=== PATIENT | male | born 1960 | race Caucasian/White ===

== ENCOUNTER → 2016-08-30 | Outpatient (CLI) | payer MEDICAID ==
[2016-03-08 14:22] VITALS: BP 130/65
[2016-08-30 13:36] LABS: BASOPHILS # (AUTO) 0.1 X10^3/uL (0.0-0.1); BASOPHILS % (AUTO) 0.7 % (0.2-1.0); EOSINOPHILS # (AUTO) 0.1 x10^3/uL (0.0-0.2); EOSINOPHILS % (AUTO) 1.5 % (0.9-2.9); HEMATOCRIT 35.5 % (42.0-54.0); HEMOGLOBIN 12.4 g/dL (13.5-18.0); LYMPHOCYTES # (AUTO) 1.3 X10^3/uL (1.3-2.9); MEAN CORPUSCULAR HEMOGLOBIN 27.8 pg (27.0-34.0); MEAN CORPUSCULAR HGB CONC 34.9 g/dL (33.0-35.0); MEAN CORPUSCULAR VOLUME 79.7 fL (80.0-100.0); MEAN PLATELET VOLUME 8.3 fL (7.4-11.0); MONOCYTES # (AUTO) 0.3 x10^3/uL (0.3-0.8); MONOCYTES % (AUTO) 4.6 % (0.0-13.0); NEUTROPHILS # (AUTO) 5.7 x10^3/uL (2.2-4.8); NEUTROPHILS % (AUTO) 76.2 % (42.0-75.0); PLATELET COUNT 150 X10^3/uL (150.0-450.0); RED BLOOD COUNT 4.45 X10^6/uL (4.7-6.0); RED CELL DISTRIBUTION WIDTH 13.8 % (11.6-16.5); WHITE BLOOD COUNT 7.5 X10^3/uL (3.6-10.0)
[2016-08-30 13:41] LABS: HEMOGLOBIN A1C 9.8 % (4.5-6.2)
[2016-08-30 13:42] LABS: ALBUMIN 2.8 g/dL (3.4-5.0); C-REACTIVE PROTEIN 23.1 mg/L (0-3.0); CHOL/HDL RATIO 7.3 (0.0-5.0); CREATININE 2.15 mg/dL (0.70-1.30); MAGNESIUM 1.3 mg/dL (1.7-2.9); TOTAL PROTEIN 6.7 g/dL (6.4-8.2); URIC ACID 8.9 mg/dL (3.5-7.2)
[2016-08-30 14:31] LABS: ERYTHROCYTE SEDIMENTATION RATE 36 MM/HOUR (0-15)
== END ==
LOC: LAB 12:58
PROVIDERS: ATTEND Nurse Practitioner Family
DX: Z76.0 Encounter for issue of repeat prescription (principal); E61.2 Magnesium deficiency; E79.0 Hyperuricemia without signs of inflammatory arthritis and tophaceous disease
CPT/HCPCS: 36415; 80053; 80061; 83036; 83735; 84550; 85025; 85652; 86140

== ENCOUNTER → 2016-09-17 | Outpatient (CLI) | payer MEDICAID ==
[2016-03-08 14:22] VITALS: BP 130/65
--- NOTE | 2016-09-17 15:50 | MRI ---
MRI lumbar spine without contrast Indication: Lower back pain Technique: Multisequence, multiplanar MR images of the lumbar spine were obtained without IV contras t. Comparison: 07/29/15 Findings: bone marrow signal and vertebral body height/alignment are normal. No acute fracture, subl uxation or suspicious osseous lesion is identified. The conus is normal in signal and caliber, termi nating at T12-L1. The cauda equina is unremarkable. A few small left renal cysts are present. The im aged paraspinal soft tissues otherwise demonstrate no gross unexpected findings. T12-L1, L1-L2: Prominent anterior osteophytes. Otherwise, unremarkable. L2-L3: Mild right facet arthropathy. Otherwise, unremarkable. L3-L4: Mild bilateral facet arthropathy. Otherwise, unremarkable. L4-L5: Prominent anterior osteophytes and mild broad-based disk bulge and facet arthropathy. Otherwi se, unremarkable. L5-S1: Moderate, broad-based disc bulge and bilateral facet arthropathy result in stable severe narr owing of the left and right lateral recesses. There is also mild canal and mild left greater than ri ght foraminal stenosis, also unchanged in the interval. Impression: Overall stable degenerative changes of the lumbar spine, greatest at L5-S1 as detailed above. Reported By:
== END ==
LOC: RAD 14:09
PROVIDERS: ATTEND Nurse Practitioner Family
DX: M54.5 Low back pain (principal)
CPT/HCPCS: 72148

== ENCOUNTER → 2016-10-10 | Outpatient (CLI) | payer MEDICAID ==
[2016-03-08 14:22] VITALS: BP 130/65
== END ==
LOC: RT 09:55
PROVIDERS: ATTEND Nurse Practitioner Family
DX: R20.8 Other disturbances of skin sensation (principal)
CPT/HCPCS: 95909

== ENCOUNTER → 2016-11-22 | Outpatient (CLI) | payer MEDICAID ==
[2016-03-08 14:22] VITALS: BP 130/65
[2016-11-22 14:42] LABS: BASOPHILS # (AUTO) 0.1 X10^3/uL (0.0-0.1); BASOPHILS % (AUTO) 0.9 % (0.2-1.0); EOSINOPHILS # (AUTO) 0.1 x10^3/uL (0.0-0.2); EOSINOPHILS % (AUTO) 2.1 % (0.9-2.9); HEMATOCRIT 26.2 % (42.0-54.0); HEMOGLOBIN 9.2 g/dL (13.5-18.0); LYMPHOCYTES # (AUTO) 1.2 X10^3/uL (1.3-2.9); LYMPHOCYTES % (AUTO) 20.5 % (21.0-51.0); MEAN CORPUSCULAR HGB CONC 34.9 g/dL (33.0-35.0); MEAN CORPUSCULAR VOLUME 80.1 fL (80.0-100.0); MEAN PLATELET VOLUME 7.6 fL (7.4-11.0); MONOCYTES # (AUTO) 0.3 x10^3/uL (0.3-0.8); MONOCYTES % (AUTO) 4.9 % (0.0-13.0); NEUTROPHILS # (AUTO) 4.1 x10^3/uL (2.2-4.8); NEUTROPHILS % (AUTO) 71.6 % (42.0-75.0); PLATELET COUNT 167 X10^3/uL (150.0-450.0); RED BLOOD COUNT 3.27 X10^6/uL (4.7-6.0); RED CELL DISTRIBUTION WIDTH 14.5 % (11.6-16.5); WHITE BLOOD COUNT 5.8 X10^3/uL (3.6-10.0)
[2016-11-22 14:55] LABS: ALBUMIN 2.6 g/dL (3.4-5.0); CALCIUM 8.7 mg/dL (8.5-10.1); CARBON DIOXIDE 29.2 mmol/L (21-32); COR CA(FOR HYPOALB) 9.8 mg/dL (8.5-10.1); CREATININE 2.25 mg/dL (0.70-1.30); MAGNESIUM 1.8 mg/dL (1.7-2.9); TOTAL PROTEIN 6.4 g/dL (6.4-8.2)
[2016-11-22 15:07] LABS: BAND NEUTROPHILS % 2 % (0-10)
[2016-11-22 15:09] LABS: HYPOCHROMASIA SLIGHT; PLATELET MORPHOLOGY COMMENT NORMAL (NORMAL)
[2016-11-22 15:11] LABS: ANISOCYTOSIS SLIGHT
[2016-11-22 17:40] LABS: RETICULOCYTE % 4.35 % (0.8-2.2)
--- NOTE | 2016-11-25 15:38 | RAD ---
HISTORY: Nontraumatic pain Study: 3 views of the left foot. Comparison: None Findings: No acute fracture or dislocation. Joint spaces are well aligned. Soft tissue swelling particularly o f the dorsal foot. IMPRESSION: 1. Soft tissue swelling of the dorsal foot without definite underlying bony injury. Reported By:
== END ==
LOC: LAB 14:21
PROVIDERS: ATTEND Nurse Practitioner Family
DX: D64.89 Other specified anemias (principal); E61.2 Magnesium deficiency; M79.672 Pain in left foot; R60.0 Localized edema
CPT/HCPCS: 36415; 73630; 80053; 83540; 83735; 85025; 85045

== ENCOUNTER → 2016-11-27 | Outpatient (CLI) | payer MEDICAID ==
[2016-03-08 14:22] VITALS: BP 130/65
[2016-11-27 14:26] LABS: HEMATOCRIT 28.8 % (42.0-54.0); HEMOGLOBIN 9.8 g/dL (13.5-18.0)
== END ==
LOC: LAB 11:17
PROVIDERS: ATTEND Nurse Practitioner Family
DX: D64.89 Other specified anemias (principal)
CPT/HCPCS: 36415; 83550; 85014; 85018

== ENCOUNTER → 2016-12-04 | Outpatient (CLI) | payer MEDICAID ==
[2016-03-08 14:22] VITALS: BP 130/65
[2016-12-04 12:46] LABS: HEMATOCRIT 33.4 % (42.0-54.0); HEMOGLOBIN 11.2 g/dL (13.5-18.0)
--- NOTE | 2016-12-04 16:45 | RAD ---
HISTORY: Hypertension, CHF, shortness of breath, congestion Study: 01/23/2016 Comparison:Two views the chest Findings: The trachea is midline. The cardiac silhouette is enlarged with prominence of the central pulmonary vasculature and increased interstitial markings. Small bilateral pleural effusions are noted right gr eater than left. Bibasilar atelectasis and/or infiltrate cannot be excluded. IMPRESSION: Cardiomegaly with mild prominence of the central pulmonary vasculature. Interstitial changes with bilateral pleural effusions. Bibasilar atelectasis and/or infiltrate cannot be excluded. Reported By:
== END | disposition home or self-care (01) ==
LOC: LAB 12:17
PROVIDERS: ATTEND Nurse Practitioner Family
DX: R06.02 Shortness of breath (principal); J90 Pleural effusion, not elsewhere classified; J98.11 Atelectasis; D64.89 Other specified anemias; I51.7 Cardiomegaly
CPT/HCPCS: 36415; 71020; 85014; 85018

== ENCOUNTER → 2016-12-10 | Outpatient (CLI) | payer MEDICAID ==
[2016-03-08 14:22] VITALS: BP 130/65
--- NOTE | 2016-12-10 15:01 | MRI ---
Indication: Pain Exam: MRI left foot without contrast Technique: Routine multiplanar multisequence imaging was performed through the left foot without cont rast Findings: The ankle mortise is intact. The talus and calcaneus are intact and normal signal intensity . The tarsal bones are intact and in good position. The metatarsals and digits appear intact. No frac ture or dislocation is seen. The bone marrow signal is normal throughout . There is no periosteal artie ction. The joint spaces are intact. There is extensive soft tissue swelling around the ankle which is more prominent medially and extends along the dorsum of the foot and into the digits . There is mild edema and stranding in the deep soft tissues and musculature around the midfoot with no focal fluid collection or mass seen. The surrounding tendons and ligaments are intact. Impression: Extensive edema and/or cellulitis around the ankle and extending along the dorsum and into the digits distally . This extends into the surrounding musculature along the midfoot with no focal fluid colle ction or abscess seen. No acute bony abnormality identified. Reported By:
== END ==
LOC: RAD 11:15
PROVIDERS: ATTEND Nurse Practitioner Family
DX: M79.672 Pain in left foot (principal); R60.0 Localized edema
CPT/HCPCS: 73721

== ENCOUNTER 2017-01-01 17:56 | Inpatient (IN) | payer MEDICAID ==
[2017-01-01 18:21] VITALS: BMI 34.7
--- NOTE | 2017-01-01 18:59 | DR.GENAD ---
HPI - PCP Primary Care Physician: Reyes - Complaint/Symptoms Chief Complaint Doctors Comments: Patient states that he has chest pain but was seen in [place] last month and was told there is nothing he could do for him. He has thirteen stents. He states that he has a history of GI bleed has been seen by Dr Irene. Chief Complaint:: "I feel like my hemoglobin is low. I haven't had any tests done, but I know what it feels like. I can't even eat." - Source History Provided: Patient - Mode of Arrival Mode of Arrival: Wheelchair - Timing Onset of Chief Complaint: 12/30/16 PMH - PMH Past Medical History: Yes Past Medical History: Anemia, CHF, Diabetes, GERD, Hypertension Past Surgical History: No Surgical History: CABG/Valve Surgery - Family History History of Family Medical Conditions: Yes Family Medical History: Diabetes Mellitus, Cancer, Coronary Artery Disease - Social History Does patient currently use any type of tobacco product: No Have you used tobacco products in the last 12 months: No Type of Tobacco Use: None Does any household member use tobacco: No Alcohol Use: None Do you use any recreational Drugs:: No Lives With: Family Lives Where: Home - infectious screening In the last 2 months have you had wt loss of >10#?: NO Have you had fever, night sweats or hemotysis?: No Have you traveled outside the country in the last 6 months?: No Isolation: Standard ROS - Review of Systems Eyes: No Symptoms Reported ENTM: No Symptoms Reported Respiratoy: No Symptoms Reported Cardiovascular: No Symptoms Reported Gastrointestinal/Abdominal: No Symptoms Reported Genitourinary: No Symptoms Reported Neurological: No Symptoms Reported Musculoskeletal: No Symptoms Reported Integumentary: No Symptoms Reported Hematologic/Lymphatic: No Symptoms Reported Endocrine: No Symptoms Reported Psychiatric: No Symptoms Reported All Other Systems: Reviewed and Negative PE - Vital Signs Vitals: Temperature 97.5 F Pulse Rate 110 Respiratory Rate 18 Blood Pressure [Right Arm] 142/65 Blood Pressure [Left Arm] 154/71 Blood Pressure 149/71 O2 Sat by Pulse Oximetry 100 - General General Appearance: Alert, In No Apparent Distress - Head Head Exam: Normal Inspection, Atraumatic - Eyes Eye exam: Normal Appearance, PERRL, EOMI - ENT ENT Exam: Normal Exam External Ear Exam: Normal External Inspection TM/Canal Exam: Bilateral Normal Nose Exam: Normal Nose Exam Mouth Exam: Normal Inspection Throat Exam: Normal Inspection - Neck Neck Exam: Normal Inspection, Full ROM - Chest Chest Inspection: Normal Inspection - Respiratory Respiratory Exam: Normal Lung Sounds Bilat Respiratory Exam: Bilateral Clear to Auscultation - Cardiovascular Cardiovascular Exam: Regular Rate, Normal Rhythm - Abdominal Exam Abdominal Exam: Normal Inspection, Normal Bowel Sounds Abdominal Tenderness: negative: RUQ, RLQ, LUQ, LLQ, Epigastrium, Suprapubic, Diffuse, Mild, Moderate, Severe, Other - Extremities Extremities Exam: Normal Inspection - Back Back Exam: Normal Inspection, Full ROM - Neurologic Neurological Exam: Alert, Oriented X3, CN II-XII Intact - Psychiatric Psychiatric Exam: Normal Affect, Normal Mood - Skin Skin Exam: Warm, Dry, Intact Course - Consultation Called: 20:15 (Dr Velázquez agreed to admit for transfusion) ROR - Labs Reviewed Result Diagrams: 01/01/17 18:38 01/01/17 18:38 Laboratory: WBC 10.1 X10^3/uL (3.6-10.0) H 01/01/17 18:38 RBC 2.75 X10^6/uL (4.7-6.0) L 01/01/17 18:38 Hgb 7.4 g/dL (13.5-18.0) L 01/01/17 18:38 Hct 21.8 % (42.0-54.0) L 01/01/17 18:38 MCV 79.0 fL (80.0-100.0) L 01/01/17 18:38 MCH 27.0 pg (27.0-34.0) 01/01/17 18:38 MCHC 34.1 g/dL (33.0-35.0) 01/01/17 18:38 RDW 15.1 % (11.6-16.5) 01/01/17 18:38 Plt Count 138 X10^3/uL (150.0-450.0) L 01/01/17 18:38 Plt Count Comment Adequate (ADEQUATE) 01/01/17 18:38 MPV 8.3 fL (7.4-11.0) 01/01/17 18:38 Neut % 82.4 % (42.0-75.0) H 01/01/17 18:38 Lymph % 12.3 % (21.0-51.0) L 01/01/17 18:38 [place] % 4.2 % (0.0-13.0) 01/01/17 18:38 Eos % 0.8 % (0.9-2.9) L 01/01/17 18:38 Baso % 0.3 % (0.2-1.0) 01/01/17 18:38 Neut # 8.4 x10^3/uL (2.2-4.8) H 01/01/17 18:38 Lymph # 1.2 X10^3/uL (1.3-2.9) L 01/01/17 18:38 [place] # 0.4 x10^3/uL (0.3-0.8) 01/01/17 18:38 Eos # 0.1 x10^3/uL (0.0-0.2) 01/01/17 18:38 Baso # 0.0 X10^3/uL (0.0-0.1) 01/01/17 18:38 Absolute Nucleated RBC 0.1 /100WBC 01/01/17 18:38 Plt Morphology Comment Normal (NORMAL) 01/01/17 18:38 RBC Morphology Abnormal (NORMAL) 01/01/17 18:38 Poikilocytosis 1+ A 01/01/17 18:38 Sodium 139 mmol/L (136-145) 01/01/17 18:38 Corrected Sodium 140 mmol/L (136-145) 01/01/17 18:38 Potassium 3.3 mmol/L (3.5-5.1) L 01/01/17 18:38 Chloride 99 mmol/L (98-107) 01/01/17 18:38 Carbon Dioxide 29.1 mmol/L (21-32) 01/01/17 18:38 BUN 45 mg/dL (7-18) H 01/01/17 18:38 Creatinine 2.43 mg/dL (0.70-1.30) H 01/01/17 18:38 Est GFR (MDRD) Af Amer 36 (>60) L 01/01/17 18:38 Est GFR (MDRD) Non-Af 29 (>60) L 01/01/17 18:38 Glucose 154 mg/dL (65-99) H 01/01/17 18:38 Calcium 9.2 mg/dL (8.5-10.1) 01/01/17 18:38 - Diagnosis Discharge Problem: GI bleed Qualifiers: GI bleed type/associated pathology: anorectal hemorrhage Qualified Code(s): K62.5 - Hemorrhage of anus and rectum - Discharge Plan Condition: Stable - Follow ups/Referrals Follow ups/Referrals: NELDA HERMAN [Primary Care Provider] - 3 days - Instructions
[2017-01-01 19:16] LABS: CALCIUM 9.2 mg/dL (8.5-10.1); CARBON DIOXIDE 29.1 mmol/L (21-32); CREATININE 2.43 mg/dL (0.70-1.30)
[2017-01-01 19:19] LABS: BASOPHILS % (AUTO) 0.3 % (0.2-1.0); EOSINOPHILS # (AUTO) 0.1 x10^3/uL (0.0-0.2); EOSINOPHILS % (AUTO) 0.8 % (0.9-2.9); HEMATOCRIT 21.8 % (42.0-54.0); HEMOGLOBIN 7.4 g/dL (13.5-18.0); LYMPHOCYTES # (AUTO) 1.2 X10^3/uL (1.3-2.9); LYMPHOCYTES % (AUTO) 12.3 % (21.0-51.0); MEAN CORPUSCULAR HGB CONC 34.1 g/dL (33.0-35.0); MEAN PLATELET VOLUME 8.3 fL (7.4-11.0); MONOCYTES # (AUTO) 0.4 x10^3/uL (0.3-0.8); MONOCYTES % (AUTO) 4.2 % (0.0-13.0); NEUTROPHILS # (AUTO) 8.4 x10^3/uL (2.2-4.8); NEUTROPHILS % (AUTO) 82.4 % (42.0-75.0); PLATELET COUNT 138 X10^3/uL (150.0-450.0); RED BLOOD COUNT 2.75 X10^6/uL (4.7-6.0); RED CELL DISTRIBUTION WIDTH 15.1 % (11.6-16.5); WHITE BLOOD COUNT 10.1 X10^3/uL (3.6-10.0)
[2017-01-01 19:23] LABS: PLATELET MORPHOLOGY COMMENT NORMAL (NORMAL); POIKILOCYTOSIS 1+
[2017-01-01] MEDS ORDERED: K-LYTE EFFERVESCENT PO STA (20:58)
--- NOTE | 2017-01-01 21:02 | RAD ---
Chest AP portable Indication: A yet. Comparison: 12/04/2016 Findings: There is cardiomegaly without pneumothorax, effusion or consolidation. No overt edema seen. Impression: Cardiomegaly without new acute chest process. Reported By:
[2017-01-01] MEDS ORDERED: K-LYTE EFFERVESCENT ONE (21:03)
[2017-01-01 22:04] LABS: CKMB % 6.2 % (<4); CREATINE KINASE MB 3.9 ng/mL (0-4.0); TROPONIN I 0.25 ng/mL (0-1.5)
[2017-01-01] MEDS ORDERED: HumuLIN R SC PRN (22:25)
[2017-01-02] MEDS: NS 500 ML IV 500 ML IV ONE ×4 (00:01→10:52)
[2017-01-02 00:02] LABS: ALBUMIN 3.3 g/dL (3.4-5.0); COR CA(FOR HYPOALB) 9.8 mg/dL (8.5-10.1); TOTAL PROTEIN 6.9 g/dL (6.4-8.2)
[2017-01-02] MEDS ORDERED: LASIX IVP ONE (01:45)
[2017-01-02] MEDS: HumuLIN R SC PRN ×2 (06:11→21:10)
[2017-01-02 08:31] LABS: BASOPHILS # (AUTO) 0.1 X10^3/uL (0.0-0.1); BASOPHILS % (AUTO) 0.8 % (0.2-1.0); EOSINOPHILS % (AUTO) 0.5 % (0.9-2.9); HEMATOCRIT 27.2 % (42.0-54.0); HEMOGLOBIN 9.4 g/dL (13.5-18.0); LYMPHOCYTES # (AUTO) 1.3 X10^3/uL (1.3-2.9); LYMPHOCYTES % (AUTO) 15.2 % (21.0-51.0); MEAN CORPUSCULAR HEMOGLOBIN 27.6 pg (27.0-34.0); MEAN CORPUSCULAR HGB CONC 34.4 g/dL (33.0-35.0); MEAN CORPUSCULAR VOLUME 80.3 fL (80.0-100.0); MEAN PLATELET VOLUME 8.4 fL (7.4-11.0); MONOCYTES # (AUTO) 0.4 x10^3/uL (0.3-0.8); MONOCYTES % (AUTO) 4.8 % (0.0-13.0); NEUTROPHILS # (AUTO) 6.6 x10^3/uL (2.2-4.8); NEUTROPHILS % (AUTO) 78.7 % (42.0-75.0); PLATELET COUNT 131 X10^3/uL (150.0-450.0); RED BLOOD COUNT 3.39 X10^6/uL (4.7-6.0); RED CELL DISTRIBUTION WIDTH 16.1 % (11.6-16.5); WHITE BLOOD COUNT 8.4 X10^3/uL (3.6-10.0)
[2017-01-02 09:12] LABS: ALBUMIN 2.9 g/dL (3.4-5.0); CALCIUM 9.4 mg/dL (8.5-10.1); CARBON DIOXIDE 27.7 mmol/L (21-32); COR CA(FOR HYPOALB) 10.3 mg/dL (8.5-10.1); CREATININE 2.24 mg/dL (0.70-1.30); TOTAL PROTEIN 6.9 g/dL (6.4-8.2)
[2017-01-02] MEDS ORDERED: VOLTAREN 1 % GEL MULTI DOSE TUBE TOP PRN (09:15)
[2017-01-02] MEDS ORDERED: BENADRYL INJ 50 MG VIAL IVP PRN (09:16)
[2017-01-02] MEDS ORDERED: TYLENOL 325 MG TAB PO PRN (09:16)
[2017-01-02] MEDS ORDERED: RESTORIL CAP 30 MG PO PRN (09:20)
[2017-01-02] MEDS ORDERED: FERROUS SULFATE 325 MG PO SCH (09:30)
[2017-01-02] MEDS ORDERED: PATIENT'S HOME MEDICATION (Potassium Chloride [Klor-Con 10] 1 TAB) PO SCH (09:30)
[2017-01-02] MEDS ORDERED: PATIENT'S HOME MEDICATION (Folic Acid [Folic Acid] 1 TAB) PO SCH (09:30)
[2017-01-02] MEDS ORDERED: AMARYL TAB 4 MG ONE (09:32)
[2017-01-02] MEDS ORDERED: PEPCID 20 MG IV PREMIX* 20 MG/50 ML BAG IV ONE (09:34)
[2017-01-02] MEDS ORDERED: AMARYL TAB 4 MG PO SCH (10:00)
[2017-01-02] MEDS: ZANAFLEX PO PRN ×2 (10:06→21:01)
[2017-01-02] MEDS: PEPCID 20 MG IV PREMIX* 20 MG/50 ML BAG IV SCH ×2 (10:06→20:52)
[2017-01-02] MEDS: APRESOLINE TAB 25 MG PO SCH ×4 (10:06→22:10)
[2017-01-02] MEDS: ZAROXOYLN PO SCH ×2 (10:06→16:21)
[2017-01-02] MEDS: COREG TAB 6.25 MG PO SCH ×2 (10:06→20:50)
[2017-01-02] MEDS: MAG-OX TAB PO SCH ×2 (10:07→20:50)
[2017-01-02] MEDS: CYMBALTA PO SCH (10:07)
[2017-01-02] MEDS: ISOSORBIDE MONONITRATE ER PO SCH (10:07)
[2017-01-02] MEDS: PROTONIX INJ 40 MG VIAL IVP SCH ×2 (10:08→20:52)
[2017-01-02] MEDS: SOLIFENACIN SUCCINATE 5 MG PO SCH (10:09)
[2017-01-02] MEDS ORDERED: NS 500 ML IV 500 ML IV ONE (10:30)
[2017-01-02] MEDS ORDERED: DIPRIVAN VIAL 20 ML ONE (13:17)
[2017-01-02] MEDS: FOLIC ACID TAB 1 MG PO SCH (20:50)
[2017-01-02] MEDS: NEURONTIN CAP 400 MG PO SCH (20:51)
[2017-01-02] MEDS: ZOCOR TAB 40 MG PO SCH (20:51)
[2017-01-02] MEDS: MICRO K EXTEN CAP 10 MEQ PO SCH (20:51)
[2017-01-02] MEDS: TRICOR TAB 48 MG PO SCH (21:01)
[2017-01-02] MEDS: ANUCORT-HC SUPP PR SCH (21:02)
--- NOTE | 2017-01-02 22:03 | DR.H&P ---
H&P - History & Physical for Day of: H&P Date: 01/01/17 - Chief Complaint Chief Complaint: weakness, shortness of breath, chest pain - Allergies Allergies/Adverse Reactions: Allergies Allergy/AdvReac Type Severity Reaction Status Date / Time aspirin Allergy Verified 01/01/17 17:57 - History of Present Illness History of Present Illness: is a 56 year old patient of ours who presented to the emergency room with complaints of weakness and associated shortness of breath. He reports I feel like my hemoglobin is low. He reports a history of GI bleeds, for which he is under the care of Dr.Irfan arrieta. He was also noted with complaints of chest pain for the past month. 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 Patient rates pain 8/10 in his chest. He reports a medical history of: CAD , CHF, [place], hypertension, pneumonia, sleep apnea, GERD, GI bleed, renal disease, muscle weakness, arthritis, anemia, anxiety, depression, angioplasty/stents, CABG/valve surgery, cardiac stents x13 and cardiac bypass x7. On examination, heart rate is normal in rate and rhythm. Lung sounds are diminished. Abdomen is round, soft, and noted with mild, diffuse tenderness. Bilateral lower extremities are noted with 3+ pitting edema. Patient reports IV access to the left foot about a year ago. He reports pain and swelling to left foot since then. Left foot is noted with erythema and edema Patient is noted to be unable to lie flat due to difficulty breathing, with shortness of breath noted upon exertion. On arrival to the ER, vital signs were 97.5, 110, 18, 100%RA, 149/71. Labs and chest xray were obtained. Abnormal lab values include the following: WBC 10.1, RBC 2.75, Hgb 7.4, Hct 21.8, MCV 79.0, Plt Count 138, Neut% 82.4, Lymph% 12.3, Eos% 0.8, Neut# 8.4, Lymph# 1.2, Poikilocytosis 1+A, Potassium 3.3 , BUN 45, Creatinine 2.43, GFR(AA) 36, GFR(non) 29, Glucose . Stool Occult Blood : Positive. Chest xray reports: Cardiomegaly without new acute chest process. We admitted patient for further treatment and evaluation of GI bleed. We plan to administer two units of PRBC. We will follow up with AM labs and continue to monitor patient. - Past Medical History Past Medical History: Anemia, CHF, Diabetes, GERD, Hypertension Additional Medical History: Hx Chronic GI Bleeds, Hx Small Bowel AVM's, Chronic Constipation, Cardiac Arrhythmia, Muscle weakness - Past Surgical History Surgical History: Angioplasty/Stents, CABG/Valve Surgery Additional Surgical History: Small bowel AVM - Family History Family Medical History: Diabetes Mellitus, Cancer, [place], Coronary Artery Disease - Social History Does patient currently use any type of tobacco product: Yes Have you used tobacco products in the last 12 months: Yes Type of Tobacco Use: Cigarettes How many years tobacco product used: 41 Does any household member use tobacco: No Alcohol Use: None Drug Use: None - Medications Home Medications: Carvedilol [Coreg Tab 6.25 mg] 6.25 mg PO BID 01/01/17 [History Confirmed ] Famotidine [Pepcid Tab 20 mg] 40 mg PO BID 01/01/17 [History Confirmed 01/01/17] Furosemide [LASIX TAB 40 MG *] 40 mg PO BID 01/01/17 [History Confirmed 01/01/17 ] Gabapentin 400 mg PO HS 01/01/17 [History Confirmed 01/01/17] Glimepiride 4 mg PO BID 01/01/17 [History Confirmed 01/01/17] Hydralazine HCl 25 mg PO TID 01/01/17 [History Confirmed 01/01/17] Metolazone [Zaroxoyln] 2.5 mg PO DAILYWS 01/01/17 [History Confirmed 01/01/17] Metolazone [Zaroxoyln] 5 mg PO DAILY 01/01/17 [History Confirmed 01/01/17] Potassium Chloride [Klor-Con 10] 1 tab PO BID 01/01/17 [History Confirmed ] Solifenacin Succinate [Vesicare] 5 mg PO DAILY 01/01/17 [History Confirmed 01/01] Temazepam 30 mg PO HS PRN 01/01/17 [History Confirmed 01/01/17] - Physical Exam Vital Signs: Temperature 98.1 F Pulse Rate [Left] 86 Pulse Rate 110 Respiratory Rate 15 Blood Pressure [Right Arm] 145/69 Blood Pressure [Left Arm] 129/68 Blood Pressure 149/71 O2 Sat by Pulse Oximetry 99
[2017-01-03 06:05] LABS: BASOPHILS % (AUTO) 0.4 % (0.2-1.0); EOSINOPHILS # (AUTO) 0.1 x10^3/uL (0.0-0.2); EOSINOPHILS % (AUTO) 1.3 % (0.9-2.9); HEMATOCRIT 29.3 % (42.0-54.0); HEMOGLOBIN 10.1 g/dL (13.5-18.0); LYMPHOCYTES % (AUTO) 15.3 % (21.0-51.0); MEAN CORPUSCULAR HEMOGLOBIN 27.8 pg (27.0-34.0); MEAN CORPUSCULAR HGB CONC 34.6 g/dL (33.0-35.0); MEAN CORPUSCULAR VOLUME 80.4 fL (80.0-100.0); MEAN PLATELET VOLUME 8.4 fL (7.4-11.0); MONOCYTES # (AUTO) 0.4 x10^3/uL (0.3-0.8); MONOCYTES % (AUTO) 5.9 % (0.0-13.0); NEUTROPHILS # (AUTO) 5.1 x10^3/uL (2.2-4.8); NEUTROPHILS % (AUTO) 77.1 % (42.0-75.0); PLATELET COUNT 109 X10^3/uL (150.0-450.0); RED BLOOD COUNT 3.64 X10^6/uL (4.7-6.0); RED CELL DISTRIBUTION WIDTH 15.7 % (11.6-16.5); WHITE BLOOD COUNT 6.7 X10^3/uL (3.6-10.0)
[2017-01-03] MEDS: APRESOLINE TAB 25 MG PO SCH ×3 (06:13→22:10)
[2017-01-03 06:43] LABS: ALBUMIN 2.7 g/dL (3.4-5.0); CARBON DIOXIDE 27.4 mmol/L (21-32); CREATININE 2.13 mg/dL (0.70-1.30); TOTAL PROTEIN 6.3 g/dL (6.4-8.2)
[2017-01-03] MEDS: PEPCID 20 MG IV PREMIX* 20 MG/50 ML BAG IV SCH ×2 (08:41→20:33)
[2017-01-03] MEDS: PROTONIX INJ 40 MG VIAL IVP SCH ×2 (08:41→20:33)
[2017-01-03] MEDS: SOLIFENACIN SUCCINATE 5 MG PO SCH (08:42)
[2017-01-03] MEDS: CYMBALTA PO SCH (08:43)
[2017-01-03] MEDS: MICRO K EXTEN CAP 10 MEQ PO SCH ×2 (08:43→20:34)
[2017-01-03] MEDS: HEMOCYTE-PLUS PO SCH (08:43)
[2017-01-03] MEDS: COREG TAB 6.25 MG PO SCH ×2 (08:43→20:34)
[2017-01-03] MEDS: FOLIC ACID TAB 1 MG PO SCH ×2 (08:43→20:34)
[2017-01-03] MEDS: MAG-OX TAB PO SCH ×2 (08:43→20:34)
[2017-01-03] MEDS: ISOSORBIDE MONONITRATE ER PO SCH (08:43)
[2017-01-03] MEDS: ZAROXOYLN PO SCH ×2 (08:44→17:05)
[2017-01-03] MEDS: ANUCORT-HC SUPP PR SCH ×2 (09:01→20:35)
[2017-01-03] MEDS: HumuLIN R SC PRN ×3 (13:47→20:33)
[2017-01-03] MEDS: NEURONTIN CAP 400 MG PO SCH (20:34)
[2017-01-03] MEDS: TRICOR TAB 48 MG PO SCH (20:34)
[2017-01-03] MEDS: ZOCOR TAB 40 MG PO SCH (20:35)
[2017-01-04 05:43] LABS: ALBUMIN 2.8 g/dL (3.4-5.0); CARBON DIOXIDE 27.2 mmol/L (21-32); CREATININE 2.12 mg/dL (0.70-1.30); TOTAL PROTEIN 6.7 g/dL (6.4-8.2)
[2017-01-04 05:48] LABS: BASOPHILS % (AUTO) 0.2 % (0.2-1.0); EOSINOPHILS # (AUTO) 0.1 x10^3/uL (0.0-0.2); EOSINOPHILS % (AUTO) 0.9 % (0.9-2.9); HEMATOCRIT 31.3 % (42.0-54.0); HEMOGLOBIN 10.6 g/dL (13.5-18.0); LYMPHOCYTES # (AUTO) 0.8 X10^3/uL (1.3-2.9); LYMPHOCYTES % (AUTO) 11.6 % (21.0-51.0); MEAN CORPUSCULAR HEMOGLOBIN 27.6 pg (27.0-34.0); MEAN CORPUSCULAR VOLUME 81.2 fL (80.0-100.0); MEAN PLATELET VOLUME 8.7 fL (7.4-11.0); MONOCYTES # (AUTO) 0.4 x10^3/uL (0.3-0.8); MONOCYTES % (AUTO) 5.8 % (0.0-13.0); NEUTROPHILS # (AUTO) 5.9 x10^3/uL (2.2-4.8); NEUTROPHILS % (AUTO) 81.5 % (42.0-75.0); PLATELET COUNT 128 X10^3/uL (150.0-450.0); RED BLOOD COUNT 3.85 X10^6/uL (4.7-6.0); RED CELL DISTRIBUTION WIDTH 15.9 % (11.6-16.5); WHITE BLOOD COUNT 7.2 X10^3/uL (3.6-10.0)
[2017-01-04] MEDS: HumuLIN R SC PRN ×2 (05:52→11:46)
[2017-01-04] MEDS: APRESOLINE TAB 25 MG PO SCH (05:53)
[2017-01-04] MEDS: PROTONIX INJ 40 MG VIAL IVP SCH ×2 (08:36→09:06)
[2017-01-04] MEDS: ANUCORT-HC SUPP PR SCH (08:36)
[2017-01-04] MEDS: PEPCID 20 MG IV PREMIX* 20 MG/50 ML BAG IV SCH ×2 (08:36→09:05)
[2017-01-04] MEDS: FOLIC ACID TAB 1 MG PO SCH (08:37)
[2017-01-04] MEDS: MICRO K EXTEN CAP 10 MEQ PO SCH (08:37)
[2017-01-04] MEDS: MAG-OX TAB PO SCH (08:37)
[2017-01-04] MEDS: HEMOCYTE-PLUS PO SCH (08:37)
[2017-01-04] MEDS: COREG TAB 6.25 MG PO SCH (08:37)
[2017-01-04] MEDS: CYMBALTA PO SCH (08:37)
[2017-01-04] MEDS: ISOSORBIDE MONONITRATE ER PO SCH (08:38)
[2017-01-04] MEDS: ZAROXOYLN PO SCH (08:42)
[2017-01-04] MEDS: SOLIFENACIN SUCCINATE 5 MG PO SCH (08:43)
[2017-01-04 12:18] VITALS: BP 154/72
--- NOTE | 2017-01-08 11:20 | PCM.PROG ---
Progress Note - Progress Note for Day of Date: 01/02/17 - Subjective Subjective: WAS ADMITTED FOR A GI BLEED. TODAY, HE IS LYING IN BED WITH EYES CLOSED ON MORNING ROUNDS. HE WAS EASILY AROUSED AND SAT UP ON THE SIDE OF BED. HE IS NOTED WITH COMPLAINTS OF WEAKNESS, ABDOMINAL PAIN, AND PAIN TO THE LEFT FOOT. ON EXAMINATION, NORMAL HEART RATE AND RHYTHM ARE NOTED. LUNGS ARE CLEAR TO AUSCULTATION. ABDOMEN IS ROUND, SOFT, AND NOTED WITH MILD, DIFFUSE TENDERNESS. NORMAL BOWEL SOUNDS NOTED IN ALL QUADRANTS. ERYTHEMA AND EDEMA CONTINUES TO LEFT FOOT. HE IS NOTED TO BE ON THE DIRECTOR PHYSICAL THERAPY. NORMAL SINUS RHYTHM WITH HR 90-100 BMP NOTED. HIS VITAL SIGNS THIS MORNING ARE 98.0-95-18-97 %-139/66. ABNORMAL LAB VALUES INCLUDE THE FOLLOWING: RBC 3.39, HGB 9.4, HCT 27.2 , PLT COUNT 131, BUN 39, CREATININE 2.24, GFR 32, GLUCOSE 189, ALBUMIN 2.9, A/G RATIO 0.7. TODAY, WE PLAN TO CONSULT WITH , RATING OFFICER. PATIENT IS MEDICALLY CLEAR SHOULD THEY DECIDE ON AN EGD OR COLONOSCOPY. WE WILL START VOLTAREN GEL QID PRN AND RESUME HOME MEDICATIONS APPROPRIATE. WE WILL ALSO ORDER TO TRANSFUSE 2 UNITS OF PRBC. OTHERWISE, WE WILL FOLLOW UP WITH AM LABS AND CONTINUE TO MONITOR PATIENT. - Past Medical Family Social History Past Med/Fam/Surg Hx: No changes since H&P Allergies: Allergies aspirin Allergy (Verified 01/01/17 17:57) - Review of Systems ROS: No change since H&P - Vital Signs and I&O's Vital Signs: Temperature 97.8 F Pulse Rate [Left] 88 Pulse Rate 110 Respiratory Rate 18 Blood Pressure [Right Arm] 154/72 Blood Pressure [Left Arm] 143/68 Blood Pressure 149/71 O2 Sat by Pulse Oximetry 98 - Physical Exam Oriented: Normal Eyes: Normal. negative: Blurred Vision, Diplopia, Discharge, Pain, Redness, Photophobia, Other Ear: Normal. negative: Right, Left, Swelling, Ecchymosis, Hemotypanum, Abrasion , Laceration Nose: Normal. negative: Injected, Discharge, Blood, Other Throat: Normal. negative: Tonsillar Hypertrophy, Red, Exudate, Dry, Other Respiratory: Normal. negative: Right, Left, Generalized, Superior, Inferior, Diminished, Wheezes, Rales, Rhonchi, OTHER Cardiovascular: Edema (LEFT FOOT ). negative: Tachycardia, Bradycardia, Irregular, Murmur : Normal. negative: Dysuria, Hematuria, Frequency, Discharge, Testicular Pain , Bleeding, , Other Auscultation: Bowel Sounds: Normal. negative: Bruit, Absent, Increased, Decreased, High Pitched, Other Palpation: Normal Tenderness: Diffuse, Mild Skin: Red (LEFT FOOT ), Tender Musculoskeletal: Normal Psychiatric: Normal Mood Description: Calm Affect: Normal Speech Pattern: Clear, Appropriate - Laboratory and Diagnostics Result Diagrams: 01/04/17 04:50 01/04/17 04:50 Labs: Laboratory WBC 7.2 X10^3/uL (3.6-10.0) 01/04/17 04:50 RBC 3.85 X10^6/uL (4.7-6.0) L 01/04/17 04:50 Hgb 10.6 g/dL (13.5-18.0) L 01/04/17 04:50 Hct 31.3 % (42.0-54.0) L 01/04/17 04:50 MCV 81.2 fL (80.0-100.0) 01/04/17 04:50 MCH 27.6 pg (27.0-34.0) 01/04/17 04:50 MCHC 34.0 g/dL (33.0-35.0) 01/04/17 04:50 RDW 15.9 % (11.6-16.5) 01/04/17 04:50 Plt Count 128 X10^3/uL (150.0-450.0) L 01/04/17 04:50 Plt Count Comment Adequate (ADEQUATE) 01/01/17 18:38 MPV 8.7 fL (7.4-11.0) 01/04/17 04:50 Neut % 81.5 % (42.0-75.0) H 01/04/17 04:50 Lymph % 11.6 % (21.0-51.0) L 01/04/17 04:50 [place] % 5.8 % (0.0-13.0) 01/04/17 04:50 Eos % 0.9 % (0.9-2.9) 01/04/17 04:50 Baso % 0.2 % (0.2-1.0) 01/04/17 04:50 Neut # 5.9 x10^3/uL (2.2-4.8) H 01/04/17 04:50 Lymph # 0.8 X10^3/uL (1.3-2.9) L 01/04/17 04:50 [place] # 0.4 x10^3/uL (0.3-0.8) 01/04/17 04:50 Eos # 0.1 x10^3/uL (0.0-0.2) 01/04/17 04:50 Baso # 0.0 X10^3/uL (0.0-0.1) 01/04/17 04:50 Absolute Nucleated RBC 0.1 /100WBC 01/04/17 04:50 Plt Morphology Comment Normal (NORMAL) 01/01/17 18:38 RBC Morphology Abnormal (NORMAL) 01/01/17 18:38 Poikilocytosis 1+ A 01/01/17 18:38 Sodium 137 mmol/L (136-145) 01/04/17 04:50 Corrected Sodium 139 mmol/L (136-145) 01/04/17 04:50 Potassium 3.4 mmol/L (3.5-5.1) L 01/04/17 04:50 Chloride 99 mmol/L (98-107) 01/04/17 04:50 Carbon Dioxide 27.2 mmol/L (21-32) 01/04/17 04:50 BUN 31 mg/dL (7-18) H 01/04/17 04:50 Creatinine 2.12 mg/dL (0.70-1.30) H 01/04/17 04:50 Est GFR (MDRD) Af Amer 42 (>60) L 01/04/17 04:50 Est GFR (MDRD) Non-Af 35 (>60) L 01/04/17 04:50 Glucose 192 mg/dL (65-99) H 01/04/17 04:50 POC Glucose (mg/dL) 327 mg/dL (65-99) H 01/04/17 11:29 Uric Acid 9.0 mg/dL (3.5-7.2) H 01/04/17 04:50 Calcium 9.0 mg/dL (8.5-10.1) 01/04/17 04:50 Corrected Calcium 10.0 mg/dL (8.5-10.1) 01/04/17 04:50 Magnesium 1.7 mg/dL (1.7-2.9) 01/02/17 08:10 Total Bilirubin 0.70 mg/dL (0.2-1.0) 01/04/17 04:50 AST 17 Units/L (15-37) 01/04/17 04:50 ALT 11 Units/L (12-78) L 01/04/17 04:50 Alkaline Phosphatase 72 Units/L (46-116) 01/04/17 04:50 Creatine Kinase 63 Units/L (39-308) 01/01/17 20:42 CK-MB (CK-2) 3.9 ng/mL (0-4.0) 01/01/17 20:42 CK/CKMB % Calc 6.2 % (<4) 01/01/17 20:42 Troponin I 0.25 ng/mL (0-1.5) 01/01/17 20:42 Total Protein 6.7 g/dL (6.4-8.2) 01/04/17 04:50 Albumin 2.8 g/dL (3.4-5.0) L 01/04/17 04:50 Globulin 3.9 g/dL (2.5-4.5) 01/04/17 04:50 Albumin/Globulin Ratio 0.7 Ratio (1.1-2.1) L 01/04/17 04:50 Stool Description Fob tube 01/01/17 20:19 Stl Occult Blood (IFOB) Positive (NEGATIVE) A 01/01/17 20:19 Blood Type O POSITIVE 01/01/17 20:42 Antibody Screen Negative 01/01/17 20:42 Crossmatch See Detail 01/01/17 20:42 - Plan (1) Acute lower gastrointestinal bleeding Status: Acute Plan: TRANSFUSE UNITS PRBC, CONSULT GI, CONTINUE TO MONITOR (2) Cellulitis of foot Status: Acute Plan: VOLTAREN GEL QID PRN, CONTINUE TO MONITOR
== END 2017-01-04 13:07 | disposition home or self-care (01) | DRG 379 ==
LOC: ER 18:05 → ICU 20:27
PROVIDERS: ADMIT Internal Medicine; ATTEND Internal Medicine
PROC: 30233N1 Transfusion of Nonautologous Red Blood Cells into Peripheral Vein, Percutaneous Approach (ICD-10-PCS; 2017-01-02)
PROC: 30233N1 Transfusion of Nonautologous Red Blood Cells into Peripheral Vein, Percutaneous Approach (ICD-10-PCS; 2017-01-02)
PROC: 30233N1 Transfusion of Nonautologous Red Blood Cells into Peripheral Vein, Percutaneous Approach (ICD-10-PCS; 2017-01-02)
PROC: 30233N1 Transfusion of Nonautologous Red Blood Cells into Peripheral Vein, Percutaneous Approach (ICD-10-PCS; 2017-01-02)
PROC: 0DJ08ZZ Inspection of Upper Intestinal Tract, Via Natural or Artificial Opening Endoscopic (ICD-10-PCS; principal; 2017-01-02 13:00)
DX: K62.5 Hemorrhage of anus and rectum (principal); D50.8 Other iron deficiency anemias; R07.89 Other chest pain; K21.9 Gastro-esophageal reflux disease without esophagitis; I10 Essential (primary) hypertension; E11.65 Type 2 diabetes mellitus with hyperglycemia; R06.02 Shortness of breath; R60.0 Localized edema; Z66 Do not resuscitate; I51.7 Cardiomegaly; Z79.01 Long term (current) use of anticoagulants; Z86.010 Personal history of colon polyps; I25.10 Atherosclerotic heart disease of native coronary artery without angina pectoris; K29.80 Duodenitis without bleeding; K29.00 Acute gastritis without bleeding; K20.8 Other esophagitis
CPT/HCPCS: 36415; 36430; 71010; 80053; 82270; 82550; 82553; 83735; 84484; 84550; 85025; 86850; 86900; 86901; 86922; 96365; 96374; 99231; 99284; A4222; C9113; P9016; S0028; A4217; J1200; J1815; J1940; J3490

== ENCOUNTER → 2017-01-16 | Outpatient (CLI) | payer MEDICAID ==
[2017-01-04 12:18] VITALS: BP 154/72
[2017-01-16 14:42] LABS: RETICULOCYTE % 3.41 % (0.8-2.2)
[2017-01-16 14:49] LABS: ALANINE AMINOTRANSFERASE 17 Units/L (12-78); ALBUMIN 3.2 g/dL (3.4-5.0); ALKALINE PHOSPHATASE 71 Units/L (46-116); ASPARTATE AMINO TRANSFERASE 16 Units/L (15-37); BLOOD UREA NITROGEN 25 mg/dL (7-18); CALCIUM 9.1 mg/dL (8.5-10.1); CARBON DIOXIDE 30.8 mmol/L (21-32); CHLORIDE 100 mmol/L (98-107); COR CA(FOR HYPOALB) 9.7 mg/dL (8.5-10.1); COR NA(FOR HYPERGLY) 140 mmol/L (136-145); CREATININE 2.17 mg/dL (0.70-1.30); LACTATE DEHYDROGENASE 168 Units/L (85-227); SODIUM 138 mmol/L (136-145); TOTAL PROTEIN 7.4 g/dL (6.4-8.2); eGFR BLACK RACES 41 (>60); eGFR NON BLACK RACES 34 (>60)
[2017-01-16 15:19] LABS: IRON 47 ug/dL (50-175); TOTAL IRON BINDING CAPACITY 375 ug/dL (250-450)
[2017-01-20 15:59] LABS: ALBUMIN (SPEP) 3.73 g/dL (3.75-5.01); ALPHA-1 (SPEP) 0.48 g/dL (0.19-0.46); ALPHA-2 (SPEP) 1.12 g/dL (0.48-1.05); GAMMA (SPEP) 1.04 g/dL (0.62-1.51)
[2017-01-20 19:53] LABS: LAMBDA LIGHT CHAIN 5.33 mg/dL (0.57-2.63)
[2017-01-21 07:38] LABS: KAPPA/LAMBDA RATIO 1.91 (0.26-1.65)
== END ==
LOC: LAB 14:01
PROVIDERS: ATTEND Internal Medicine Medical Oncology
DX: D64.89 Other specified anemias (principal)
CPT/HCPCS: 36415; 80053; 82607; 82728; 82746; 83010; 83540; 83550; 83615; 83883; 84165; 85045; 86880

== ENCOUNTER → 2017-01-23 | Outpatient (CLI) | payer MEDICAID ==
[2017-01-04 12:18] VITALS: BP 154/72
[2017-01-23 14:58] LABS: BASOPHILS # (AUTO) 0.1 X10^3/uL (0.0-0.1); EOSINOPHILS # (AUTO) 0.2 x10^3/uL (0.0-0.2); EOSINOPHILS % (AUTO) 2.5 % (0.9-2.9); HEMATOCRIT 35.1 % (42.0-54.0); HEMOGLOBIN 11.9 g/dL (13.5-18.0); LYMPHOCYTES # (AUTO) 1.1 X10^3/uL (1.3-2.9); LYMPHOCYTES % (AUTO) 15.7 % (21.0-51.0); MEAN CORPUSCULAR HEMOGLOBIN 26.9 pg (27.0-34.0); MEAN CORPUSCULAR VOLUME 79.1 fL (80.0-100.0); MEAN PLATELET VOLUME 8.8 fL (7.4-11.0); MONOCYTES # (AUTO) 0.4 x10^3/uL (0.3-0.8); MONOCYTES % (AUTO) 5.1 % (0.0-13.0); NEUTROPHILS # (AUTO) 5.2 x10^3/uL (2.2-4.8); NEUTROPHILS % (AUTO) 75.7 % (42.0-75.0); PLATELET COUNT 121 X10^3/uL (150.0-450.0); RED BLOOD COUNT 4.43 X10^6/uL (4.7-6.0); RED CELL DISTRIBUTION WIDTH 15.8 % (11.6-16.5); WHITE BLOOD COUNT 6.9 X10^3/uL (3.6-10.0)
== END ==
LOC: LAB 14:49
PROVIDERS: ATTEND Internal Medicine Medical Oncology
DX: D64.89 Other specified anemias (principal)
CPT/HCPCS: 36415; 85025

== ENCOUNTER → 2017-03-01 | Outpatient (CLI) | payer MEDICAID ==
[2017-03-01 12:54] LABS: HEMOGLOBIN A1C 7.2 % (4.5-6.2)
[2017-03-01 12:58] LABS: CHOL/HDL RATIO 7.3 (0.0-5.0); MAGNESIUM 1.4 mg/dL (1.7-2.9)
== END ==
LOC: LAB 12:26
PROVIDERS: ATTEND Nurse Practitioner Family
DX: E61.2 Magnesium deficiency (principal); E11.9 Type 2 diabetes mellitus without complications
CPT/HCPCS: 36415; 80061; 83036; 83735

== ENCOUNTER → 2017-03-04 | Outpatient (CLI) | payer MEDICAID ==
[2017-03-04 13:13] LABS: MICROALBUMIN,URINE 735.2 mg/L
== END ==
LOC: LAB 12:32
PROVIDERS: ATTEND Nurse Practitioner Family
DX: E61.2 Magnesium deficiency (principal)
CPT/HCPCS: 82043

== ENCOUNTER → 2017-03-20 | Outpatient (CLI) | payer MEDICAID ==
[2017-03-20 18:00] LABS: BASOPHILS % (AUTO) 0.8 % (0.2-1.0); EOSINOPHILS # (AUTO) 0.1 x10^3/uL (0.0-0.2); EOSINOPHILS % (AUTO) 1.7 % (0.9-2.9); HEMATOCRIT 30.9 % (42.0-54.0); HEMOGLOBIN 10.3 g/dL (13.5-18.0); LYMPHOCYTES # (AUTO) 0.7 X10^3/uL (1.3-2.9); LYMPHOCYTES % (AUTO) 12.5 % (21.0-51.0); MEAN CORPUSCULAR HEMOGLOBIN 26.4 pg (27.0-34.0); MEAN CORPUSCULAR HGB CONC 33.5 g/dL (33.0-35.0); MEAN PLATELET VOLUME 8.4 fL (7.4-11.0); MONOCYTES # (AUTO) 0.2 x10^3/uL (0.3-0.8); MONOCYTES % (AUTO) 3.8 % (0.0-13.0); NEUTROPHILS # (AUTO) 4.5 x10^3/uL (2.2-4.8); NEUTROPHILS % (AUTO) 81.2 % (42.0-75.0); PLATELET COUNT 146 X10^3/uL (150.0-450.0); RED CELL DISTRIBUTION WIDTH 16.5 % (11.6-16.5); WHITE BLOOD COUNT 5.5 X10^3/uL (3.6-10.0)
[2017-03-20 18:08] LABS: CARBON DIOXIDE 24.9 mmol/L (21-32); COR CA(FOR HYPOALB) 9.8 mg/dL (8.5-10.1); CREATININE 1.87 mg/dL (0.70-1.30); PHOSPHORUS 2.8 mg/dL (2.6-4.7); TOTAL PROTEIN 7.2 g/dL (6.4-8.2); URIC ACID 9.6 mg/dL (3.5-7.2)
[2017-03-20 18:18] LABS: BAND NEUTROPHILS % 1 % (0-10); PLATELET MORPHOLOGY COMMENT NORMAL (NORMAL)
[2017-03-20 18:19] LABS: HYPOCHROMASIA SLIGHT; MICROCYTOSIS SLIGHT
[2017-03-20 19:44] LABS: CREATININE,URINE 68.93 mg/dL (40-278)
== END ==
LOC: LAB 17:18
PROVIDERS: ATTEND Physician Assistant Medical
DX: D64.89 Other specified anemias (principal); I12.9 Hypertensive chronic kidney disease with stage 1 through stage 4 chronic kidney disease, or unspecified chronic kidney disease; N18.4 Chronic kidney disease, stage 4 (severe)
CPT/HCPCS: 36415; 80053; 80069; 82570; 82668; 82728; 83540; 83550; 84157; 84550; 85025

== ENCOUNTER 2017-03-22 14:04 | Inpatient (IN) | payer MEDICAID ==
--- NOTE | 2017-03-22 14:27 | RAD ---
HISTORY: Shortness of breath Study: AP portable chest Comparison: 01/01/2017 Findings: Since the prior examination the patient has developed a moderate-sized left pleural effusion with mod erate atelectatic change/infiltrate. A small pleural effusion has developed on the right with minima l atelectatic change/infiltrate. Moderate cardiomegaly is noted. The patient is status post median sternotomy. No acute bony abnormalities are identified. IMPRESSION: 1. Moderate cardiomegaly without definite evidence of failure. 2. Moderate-sized left pleural effusion with moderate atelectatic change/infiltrate. This has devel oped since the prior examination. 3. Small right-sided pleural effusion with minimal atelectatic change/infiltrate, new when compared t o the prior examination. Reported By:
--- NOTE | 2017-03-22 14:37 | DR.GENAD ---
HPI - HPI Comment HPI Comment: WORSE TODAY. PATIENT TAKES ORAL LASIX BUT NOT DIURESING.LOWER EXTREMITY SWELLING WITH WEEPING. NO FEVER. - Complaint/Symptoms Chief Complaint Doctors Comments: INCREASING SOB AND INCREASING EDEMA FOR FEW DAYS. Chief Complaint:: "hard time breathing" Self Treatment fo Chief Complaint: 125mg of solu medrol. 5mg of albutrol. blood sugar is 266 at this time - Nurses notes reviewed Nurses Notes Review: Yes - Source History Provided: Patient, Family Member, EMS - Mode of Arrival Mode of Arrival: EMS - Timing Onset of Chief Complaint: 03/22/17 Came on: Suddenly - Duration Duration: Constant Duration: Days - Severity Severity: Moderate PMH - PMH Past Medical History: Yes Past Medical History: Anemia, CHF, Diabetes, GERD, Hypertension Past Surgical History: Yes Surgical History: Angioplasty/Stents, CABG/Valve Surgery - Family History History of Family Medical Conditions: Yes Family Medical History: Diabetes Mellitus, Cancer, [place], Coronary Artery Disease - Social History Does patient currently use any type of tobacco product: Yes Have you used tobacco products in the last 12 months: Yes Type of Tobacco Use: Cigarettes Does any household member use tobacco: No Alcohol Use: None Do you use any recreational Drugs:: No Lives With: Family Lives Where: Home - infectious screening In the last 2 months have you had wt loss of >10#?: NO Have you had fever, night sweats or hemotysis?: No Have you traveled outside the country in the last 6 months?: No Isolation: Standard ROS - Review of Systems Constitutional: Weakness, Fatigue. negative: Chills, Fever ENTM: No Symptoms Reported. negative: Ear Pain, Nose Discharge, Nose Congestion , Throat Pain Respiratoy: Productive Cough, Short of Breath, Wheezing. negative: Hemoptysis Cardiovascular: Chest Pain, Edema Gastrointestinal/Abdominal: No Symptoms Reported. negative: Abdominal Pain, Diarrhea, Nausea, Vomiting Genitourinary: negative: Dysuria, Frequency, Hematuria Neurological: Weakness, Dizziness Musculoskeletal: Muscle Pain Integumentary: Change in Color Hematologic/Lymphatic: No Symptoms Reported Endocrine: Increased Thirst, Increased Urine All Other Systems: Reviewed and Negative PE - Vital Signs Vitals: Temperature 97.8 F Pulse Rate 116 Respiratory Rate 25 Blood Pressure [Right Arm] 181/82 Blood Pressure [Left Arm] 143/68 Blood Pressure 171/78 O2 Sat by Pulse Oximetry 100 - General Limitations: No Limitations General Appearance: Alert, In Distress - Head Head Exam: Normal Inspection - Eyes Eye exam: Normal Appearance, PERRL, EOMI. negative: Scleral Icterus, Conjunctival Injection - ENT ENT Exam: Normal External Ear Exam External Ear Exam: Normal External Inspection TM/Canal Exam: Bilateral Normal Nose Exam: Normal Nose Exam Mouth Exam: Normal Inspection Throat Exam: Normal Inspection - Neck Neck Exam: Trachea Midline. negative: Tenderness, Meningismus, Lymphadenopathy - Chest Chest Inspection: Symmetric Chest Wall Rise - Respiratory Respiratory Exam: Respiratory Distress Respiratory Exam: Bilateral Wheezing, Bilateral Rhonchi, Upper Wheezing, Upper Rhonchi, Lower Wheezing, Lower Rhonchi - Cardiovascular Cardiovascular Exam: Regular Rate, Normal Rhythm, Normal Heart Sounds - Abdominal Exam Abdominal Exam: Normal Bowel Sounds, Soft. negative: Tenderness - Extremities Extremities Exam: Tenderness, Edema - Back Back Exam: Paraspinal Tenderness - Neurologic Neurological Exam: Alert, Oriented X3 - Psychiatric Psychiatric Exam: Anxious - Skin Skin Exam: Erythema MDM - Additional Information Additional Information Obtained From: Family - Differential Diagnosis Differential Diagnosis: CHD, [place], PNEUMONIA, GENERALIZE WEAKNESS, EDEMA Course - Treatment Treatment: SEE ORDERS. - Consultation Consultation Comments: DISCUSS PATIENT WITH DR. SOSA. HE WILL ADMIT PATIENT. - Education/Counseling Education/Counseling: Patient, Family, Education Educated On: Diagnosis ROR - Labs Reviewed Laboratory Results Reviewed?: Yes Result Diagrams: 03/22/17 14:48 03/22/17 14:48 Laboratory: WBC 8.2 X10^3/uL (3.6-10.0) 03/22/17 14:48 RBC 3.77 X10^6/uL (4.7-6.0) L 03/22/17 14:48 Hgb 10.1 g/dL (13.5-18.0) L 03/22/17 14:48 Hct 30.0 % (42.0-54.0) L 03/22/17 14:48 MCV 79.5 fL (80.0-100.0) L 03/22/17 14:48 MCH 26.6 pg (27.0-34.0) L 03/22/17 14:48 MCHC 33.5 g/dL (33.0-35.0) 03/22/17 14:48 RDW 16.5 % (11.6-16.5) 03/22/17 14:48 Plt Count 122 X10^3/uL (150.0-450.0) L 03/22/17 14:48 MPV 8.4 fL (7.4-11.0) 03/22/17 14:48 Neut % 89.0 % (42.0-75.0) H 03/22/17 14:48 Lymph % 6.5 % (21.0-51.0) L 03/22/17 14:48 [place] % 3.0 % (0.0-13.0) 03/22/17 14:48 Eos % 0.8 % (0.9-2.9) L 03/22/17 14:48 Baso % 0.7 % (0.2-1.0) 03/22/17 14:48 Neut # 7.3 x10^3/uL (2.2-4.8) H 03/22/17 14:48 Lymph # 0.5 X10^3/uL (1.3-2.9) L 03/22/17 14:48 [place] # 0.2 x10^3/uL (0.3-0.8) L 03/22/17 14:48 Eos # 0.1 x10^3/uL (0.0-0.2) 03/22/17 14:48 Baso # 0.1 X10^3/uL (0.0-0.1) 03/22/17 14:48 Absolute Nucleated RBC 0.0 /100WBC 03/22/17 14:48 Sample Site R brach 03/22/17 17:27 ABG pH 7.420 (7.35-7.45) 03/22/17 17:27 ABG pCO2 42.0 mmHg (35.0-45.0) 03/22/17 17:27 ABG pO2 78.0 mmHg (80.0-100.0) L 03/22/17 17:27 ABG HCO3 27.2 mmol/L (22-26) H 03/22/17 17:27 ABG O2 Saturation 96.0 % (90-100) 03/22/17 17:27 ABG Base Excess 2.4 mmol/L (-2.0-2.0) H 03/22/17 17:27 Alec Test Na 03/22/17 17:27 A-a Gradient 69.0 mmHg 03/22/17 17:27 FiO2 28.000 03/22/17 17:27 Blood Gas Comments Ashish well 03/22/17 17:27 Sodium 138 mmol/L (136-145) 03/22/17 14:48 Corrected Sodium 143 mmol/L (136-145) 03/22/17 14:48 Potassium 4.4 mmol/L (3.5-5.1) 03/22/17 14:48 Chloride 103 mmol/L (98-107) 03/22/17 14:48 Carbon Dioxide 29.7 mmol/L (21-32) 03/22/17 14:48 BUN 23 mg/dL (7-18) H 03/22/17 14:48 Creatinine 1.89 mg/dL (0.70-1.30) H 03/22/17 14:48 Est GFR (MDRD) Af Amer 48 (>60) L 03/22/17 14:48 Est GFR (MDRD) Non-Af 39 (>60) L 03/22/17 14:48 Glucose 292 mg/dL (65-99) H 03/22/17 14:48 Calcium 8.9 mg/dL (8.5-10.1) 03/22/17 14:48 Corrected Calcium 9.8 mg/dL (8.5-10.1) 03/22/17 14:48 Total Bilirubin 0.50 mg/dL (0.2-1.0) 03/22/17 14:48 AST 19 Units/L (15-37) 03/22/17 14:48 ALT 16 Units/L (12-78) 03/22/17 14:48 Alkaline Phosphatase 103 Units/L (46-116) 03/22/17 14:48 Creatine Kinase 104 Units/L (39-308) 03/22/17 17:12 CK-MB (CK-2) 5.1 ng/mL (0-4.0) H* 03/22/17 17:12 CK/CKMB % Calc 4.9 % (<4) 03/22/17 17:12 Troponin I 0.07 ng/mL (0-1.5) 03/22/17 17:12 B-Natriuretic Peptide 991 pg/mL (0-79) H* 03/22/17 14:48 Total Protein 6.7 g/dL (6.4-8.2) 03/22/17 14:48 Albumin 2.9 g/dL (3.4-5.0) L 03/22/17 14:48 Globulin 3.8 g/dL (2.5-4.5) 03/22/17 14:48 Albumin/Globulin Ratio 0.8 Ratio (1.1-2.1) L 03/22/17 14:48 - XRAY XRAY Interpreted by: Radiologist XRAY Findings: REPORT DISCUSS WITH PATIENT. - EKG Rhythm: NSR (EKG NOTED.) - Diagnosis Discharge Problem: CHF (congestive heart failure), Pleural effusion, Respiratory distress - Discharge Plan Disposition: ADMITTED INPATIENT Condition: Stable - Follow ups/Referrals - Instructions
[2017-03-22] MEDS ORDERED: DUONEB 0.5 MG/3 MG NEB ONE (14:39)
[2017-03-22] MEDS ORDERED: LASIX IVP ONE ×2 (14:39→14:52)
[2017-03-22 15:02] LABS: BASOPHILS # (AUTO) 0.1 X10^3/uL (0.0-0.1); BASOPHILS % (AUTO) 0.7 % (0.2-1.0); EOSINOPHILS # (AUTO) 0.1 x10^3/uL (0.0-0.2); EOSINOPHILS % (AUTO) 0.8 % (0.9-2.9); HEMOGLOBIN 10.1 g/dL (13.5-18.0); LYMPHOCYTES # (AUTO) 0.5 X10^3/uL (1.3-2.9); LYMPHOCYTES % (AUTO) 6.5 % (21.0-51.0); MEAN CORPUSCULAR HEMOGLOBIN 26.6 pg (27.0-34.0); MEAN CORPUSCULAR HGB CONC 33.5 g/dL (33.0-35.0); MEAN CORPUSCULAR VOLUME 79.5 fL (80.0-100.0); MEAN PLATELET VOLUME 8.4 fL (7.4-11.0); MONOCYTES # (AUTO) 0.2 x10^3/uL (0.3-0.8); NEUTROPHILS # (AUTO) 7.3 x10^3/uL (2.2-4.8); PLATELET COUNT 122 X10^3/uL (150.0-450.0); RED BLOOD COUNT 3.77 X10^6/uL (4.7-6.0); RED CELL DISTRIBUTION WIDTH 16.5 % (11.6-16.5); WHITE BLOOD COUNT 8.2 X10^3/uL (3.6-10.0)
[2017-03-22 15:13] LABS: CALCIUM 8.9 mg/dL (8.5-10.1); CARBON DIOXIDE 29.7 mmol/L (21-32); CREATININE 1.89 mg/dL (0.70-1.30); TROPONIN I 0.03 ng/mL (0-1.5)
[2017-03-22 15:37] LABS: ALBUMIN 2.9 g/dL (3.4-5.0); CKMB % 4.8 % (<4); COR CA(FOR HYPOALB) 9.8 mg/dL (8.5-10.1); TOTAL PROTEIN 6.7 g/dL (6.4-8.2)
[2017-03-22 15:39] LABS: CREATINE KINASE MB 4.2 ng/mL (0-4.0)
[2017-03-22 17:33] LABS: ABG BASE EXCESS 2.4 mmol/L (-2.0-2.0); ABG HCO3 27.2 mmol/L (22-26)
[2017-03-22 17:56] LABS: CKMB % 4.9 % (<4); TROPONIN I 0.07 ng/mL (0-1.5)
[2017-03-22 18:01] LABS: CREATINE KINASE MB 5.1 ng/mL (0-4.0)
[2017-03-22] MEDS ORDERED: PATIENT'S HOME MEDICATION (Folic Acid [Folic Acid] 1 TAB) PO SCH (21:00)
[2017-03-22] MEDS ORDERED: PATIENT'S HOME MEDICATION (Potassium Chloride [Klor-Con 10] 1 TAB) PO SCH (21:00)
[2017-03-22] MEDS ORDERED: FOLIC ACID TAB 1 MG PO SCH (23:00)
[2017-03-22] MEDS ORDERED: MICRO K EXTEN CAP 10 MEQ PO SCH (23:00)
[2017-03-22] MEDS: LASIX IVP SCH (23:15)
[2017-03-22] MEDS: ZOCOR TAB 40 MG PO SCH (23:16)
[2017-03-22] MEDS: MICRO K EXTEN CAP 10 MEQ PO SCH (23:16)
[2017-03-22] MEDS: COREG TAB 6.25 MG PO SCH (23:16)
[2017-03-22] MEDS: AMARYL TAB 4 MG PO SCH (23:16)
[2017-03-22] MEDS: LASIX PO SCH (23:17)
[2017-03-23] MEDS: HumuLIN R SUBCUT PRN ×3 (00:56→20:44)
[2017-03-23 01:04] LABS: TROPONIN I 0.29 ng/mL (0-1.5)
[2017-03-23 01:31] LABS: CREATINE KINASE MB 5.7 ng/mL (0-4.0)
[2017-03-23 06:22] LABS: ALBUMIN 2.8 g/dL (3.4-5.0); BASOPHILS % (AUTO) 0.2 % (0.2-1.0); CALCIUM 9.1 mg/dL (8.5-10.1); CARBON DIOXIDE 31.7 mmol/L (21-32); CHOL/HDL RATIO 6.4 (0.0-5.0); COR CA(FOR HYPOALB) 10.1 mg/dL (8.5-10.1); CREATININE 1.93 mg/dL (0.70-1.30); HEMATOCRIT 28.6 % (42.0-54.0); HEMOGLOBIN 9.8 g/dL (13.5-18.0); LYMPHOCYTES # (AUTO) 0.5 X10^3/uL (1.3-2.9); LYMPHOCYTES % (AUTO) 9.5 % (21.0-51.0); MAGNESIUM 1.7 mg/dL (1.7-2.9); MEAN CORPUSCULAR HGB CONC 34.4 g/dL (33.0-35.0); MEAN CORPUSCULAR VOLUME 78.7 fL (80.0-100.0); MEAN PLATELET VOLUME 8.7 fL (7.4-11.0); MONOCYTES # (AUTO) 0.3 x10^3/uL (0.3-0.8); MONOCYTES % (AUTO) 5.7 % (0.0-13.0); NEUTROPHILS # (AUTO) 4.8 x10^3/uL (2.2-4.8); NEUTROPHILS % (AUTO) 84.6 % (42.0-75.0); PLATELET COUNT 139 X10^3/uL (150.0-450.0); RED BLOOD COUNT 3.64 X10^6/uL (4.7-6.0); RED CELL DISTRIBUTION WIDTH 16.3 % (11.6-16.5); TOTAL PROTEIN 6.8 g/dL (6.4-8.2); WHITE BLOOD COUNT 5.7 X10^3/uL (3.6-10.0)
[2017-03-23] MEDS: LASIX IVP SCH ×2 (06:55→17:05)
[2017-03-23 07:14] LABS: TROPONIN I 0.45 ng/mL (0-1.5)
[2017-03-23 07:19] LABS: CREATINE KINASE MB 4.9 ng/mL (0-4.0)
[2017-03-23] MEDS ORDERED: ZyrTEC TAB 10 MG PO SCH (09:00)
[2017-03-23] MEDS ORDERED: SOLIFENACIN SUCCINATE 5 MG PO SCH (09:00)
[2017-03-23] MEDS ORDERED: PATIENT'S HOME MEDICATION (Cetirizine Hcl [Zyrtec] 10 MG) PO SCH (09:00)
[2017-03-23] MEDS ORDERED: PATIENT'S HOME MEDICATION (Clopidogrel Bisulfate [Clopidogrel] 1 TAB) PO SCH (09:00)
[2017-03-23] MEDS: PROTONIX TAB 40 MG PO SCH (09:27)
[2017-03-23] MEDS: AMARYL TAB 4 MG PO SCH ×2 (09:27→20:42)
[2017-03-23] MEDS: PLAVIX PO SCH (09:27)
[2017-03-23] MEDS: DETROL LA 2 MG CAP EXT REL PO SCH (09:27)
[2017-03-23] MEDS: FLOMAX PO SCH (09:27)
[2017-03-23] MEDS: CLARITIN PO SCH (09:27)
[2017-03-23] MEDS: FOLIC ACID TAB 1 MG PO SCH ×2 (09:27→20:41)
[2017-03-23] MEDS: COREG TAB 6.25 MG PO SCH ×2 (09:27→20:41)
[2017-03-23] MEDS: ISOSORBIDE MONONITRATE ER PO SCH (09:27)
[2017-03-23] MEDS: K-DUR TAB 20 MEQ PO SCH (09:27)
[2017-03-23] MEDS: NITRODUR PATCH 0.4 MG/HR TD SCH (09:28)
[2017-03-23] MEDS: MICRO K EXTEN CAP 10 MEQ PO SCH ×2 (09:31→20:42)
[2017-03-23] MEDS: CYMBALTA PO SCH (09:31)
[2017-03-23] MEDS: LASIX PO SCH (09:32)
[2017-03-23] MEDS ORDERED: ZAROXOYLN PO SCH (17:00)
[2017-03-23] MEDS ORDERED: SNACK - Diabetic Appropriate PO SCH (20:00)
[2017-03-23] MEDS: ZOCOR TAB 40 MG PO SCH (20:41)
[2017-03-23] MEDS: NORCO 5/325 MG TAB PO PRN (20:42)
[2017-03-23] MEDS: MILK OF MAGNESIA PO SCH (20:43)
[2017-03-23] MEDS ORDERED: COLACE CAP 100 MG PO SCH (21:00)
[2017-03-23] MEDS ORDERED: NS 100 ML IV 100 ML IV ONE (23:53)
[2017-03-23] MEDS ORDERED: MERREM VIAL ONE (23:53)
[2017-03-24 06:20] LABS: BASOPHILS % (AUTO) 0.7 % (0.2-1.0); EOSINOPHILS # (AUTO) 0.1 x10^3/uL (0.0-0.2); EOSINOPHILS % (AUTO) 0.8 % (0.9-2.9); HEMATOCRIT 27.6 % (42.0-54.0); HEMOGLOBIN 9.4 g/dL (13.5-18.0); LYMPHOCYTES # (AUTO) 1.4 X10^3/uL (1.3-2.9); LYMPHOCYTES % (AUTO) 20.4 % (21.0-51.0); MEAN CORPUSCULAR HEMOGLOBIN 26.9 pg (27.0-34.0); MEAN CORPUSCULAR HGB CONC 34.3 g/dL (33.0-35.0); MEAN CORPUSCULAR VOLUME 78.4 fL (80.0-100.0); MEAN PLATELET VOLUME 8.5 fL (7.4-11.0); MONOCYTES # (AUTO) 0.4 x10^3/uL (0.3-0.8); NEUTROPHILS % (AUTO) 72.1 % (42.0-75.0); PLATELET COUNT 145 X10^3/uL (150.0-450.0); RED BLOOD COUNT 3.51 X10^6/uL (4.7-6.0); RED CELL DISTRIBUTION WIDTH 16.4 % (11.6-16.5); WHITE BLOOD COUNT 6.9 X10^3/uL (3.6-10.0)
[2017-03-24] MEDS: LASIX IVP SCH (06:23)
[2017-03-24 06:57] LABS: ALBUMIN 2.7 g/dL (3.4-5.0); CARBON DIOXIDE 29.5 mmol/L (21-32); CREATININE 1.9 mg/dL (0.70-1.30); TOTAL PROTEIN 6.5 g/dL (6.4-8.2)
[2017-03-24 07:44] VITALS: BMI 36.0
--- NOTE | 2017-03-24 08:29 | RAD ---
Examination: Portable AP chest History: Respiratory distress Comparison reference 03/22/2017 Findings: Continued cardiac enlargement. Retrocardiac opacity continues, consistent with airspace dis ease and possible left pleural effusion. The previously suggested right pleural effusion is not well seen today. No complicating pneumothorax is seen. Impression: Persistent cardiac enlargement with infiltrate and fluid left base. No new abnormality de monstrated. Reported By:
[2017-03-24] MEDS: MILK OF MAGNESIA PO SCH (09:33)
[2017-03-24] MEDS: ISOSORBIDE MONONITRATE ER PO SCH (09:33)
[2017-03-24] MEDS: MICRO K EXTEN CAP 10 MEQ PO SCH (09:33)
[2017-03-24] MEDS: AMARYL TAB 4 MG PO SCH (09:33)
[2017-03-24] MEDS: DETROL LA 2 MG CAP EXT REL PO SCH (09:33)
[2017-03-24] MEDS: PROTONIX TAB 40 MG PO SCH (09:33)
[2017-03-24] MEDS: FOLIC ACID TAB 1 MG PO SCH (09:33)
[2017-03-24] MEDS: CLARITIN PO SCH (09:33)
[2017-03-24] MEDS: NORCO 5/325 MG TAB PO PRN (09:34)
[2017-03-24] MEDS: PLAVIX PO SCH (09:34)
[2017-03-24] MEDS: FLOMAX PO SCH (09:34)
[2017-03-24] MEDS: K-DUR TAB 20 MEQ PO SCH (09:34)
[2017-03-24] MEDS: COREG TAB 6.25 MG PO SCH (09:34)
[2017-03-24] MEDS: NITRODUR PATCH 0.4 MG/HR TD SCH (09:36)
[2017-03-24] MEDS: CYMBALTA PO SCH (09:39)
[2017-03-24 16:15] VITALS: BP 156/72
== END 2017-03-24 15:40 | disposition home or self-care (01) | DRG 204 ==
LOC: ER 14:06 → UNDOADMIN 20:28 → ICU 20:28
PROVIDERS: ADMIT Internal Medicine; ATTEND Internal Medicine
DX: R06.03 Acute respiratory distress (principal); J90 Pleural effusion, not elsewhere classified; I50.9 Heart failure, unspecified; R60.1 Generalized edema; R06.02 Shortness of breath; E11.65 Type 2 diabetes mellitus with hyperglycemia; K21.9 Gastro-esophageal reflux disease without esophagitis; I10 Essential (primary) hypertension; R94.31 Abnormal electrocardiogram [ECG] [EKG]; I25.10 Atherosclerotic heart disease of native coronary artery without angina pectoris; Z66 Do not resuscitate
CPT/HCPCS: 36415; 36600; 71045; 80053; 80061; 82550; 82553; 82803; 82947; 83735; 83880; 84484; 85025; 85610; 85730; 93005; 93010; 96365; 96374; 99284; A4216; J1815; J1940; J2185

== ENCOUNTER 2017-05-30 17:15 | Inpatient (IN) | payer MEDICAID ==
[2017-05-30] MEDS ORDERED: HumuLIN R SUBCUT PRN (17:29)
[2017-05-30] MEDS ORDERED: BUTT CREAM (COMPOUND) ONE (17:31)
[2017-05-30] MEDS ORDERED: PHARMACY CONSULT - VANCOMYCIN XX SCH (18:00)
[2017-05-30] MEDS: NS 1000 ML 1,000 ML IV SCH (18:17)
[2017-05-30 18:25] LABS: BASOPHILS % (AUTO) 0.2 % (0.2-1.0); EOSINOPHILS # (AUTO) 0.2 x10^3/uL (0.0-0.2); EOSINOPHILS % (AUTO) 1.9 % (0.9-2.9); HEMATOCRIT 29.8 % (42.0-54.0); HEMOGLOBIN 10.1 g/dL (13.5-18.0); LYMPHOCYTES # (AUTO) 0.7 X10^3/uL (1.3-2.9); LYMPHOCYTES % (AUTO) 7.5 % (21.0-51.0); MEAN CORPUSCULAR HEMOGLOBIN 27.9 pg (27.0-34.0); MEAN CORPUSCULAR HGB CONC 33.8 g/dL (33.0-35.0); MEAN CORPUSCULAR VOLUME 82.5 fL (80.0-100.0); MEAN PLATELET VOLUME 8.4 fL (7.4-11.0); MONOCYTES # (AUTO) 0.3 x10^3/uL (0.3-0.8); MONOCYTES % (AUTO) 3.5 % (0.0-13.0); NEUTROPHILS # (AUTO) 7.9 x10^3/uL (2.2-4.8); NEUTROPHILS % (AUTO) 86.9 % (42.0-75.0); PLATELET COUNT 88 X10^3/uL (150.0-450.0); RED BLOOD COUNT 3.61 X10^6/uL (4.7-6.0); RED CELL DISTRIBUTION WIDTH 17.4 % (11.6-16.5); WHITE BLOOD COUNT 9.1 X10^3/uL (3.6-10.0)
[2017-05-30 18:42] LABS: LACTIC ACID 3.7 mmol/L (0.4-2.0)
[2017-05-30 18:44] LABS: CALCIUM 8.3 mg/dL (8.5-10.1); CARBON DIOXIDE 30.8 mmol/L (21-32); COR CA(FOR HYPOALB) 9.9 mg/dL (8.5-10.1); CREATININE 2.31 mg/dL (0.70-1.30); TOTAL PROTEIN 6.8 g/dL (6.4-8.2)
[2017-05-30] MEDS: ZOSYN VIAL 3.375 GM IV SCH (18:48)
[2017-05-30] MEDS ORDERED: NS 100 ML IV + SPIKE MINIBAG* 100 ML IV ONE (18:50)
[2017-05-30] MEDS: SNACK - Diabetic Appropriate PO SCH (19:51)
[2017-05-30 22:00] VITALS: BMI 36.2
[2017-05-30] MEDS: NS IV SCH (22:35)
[2017-05-30] MEDS: VANCOMYCIN HCL IV SCH (22:35)
[2017-05-30] MEDS: MORPHINE SULFATE INJ 2 MG INJ IVP PRN (23:08)
[2017-05-30] MEDS: NYSTATIN POWDER TOP SCH (23:09)
[2017-05-30 23:32] LABS: BILIRUBIN,URINE NEGATIVE (NEGATIVE); BLOOD/HEMOGLOBIN,URINE 3+ (NEGATIVE); GLUCOSE, URINE NEGATIVE (NEGATIVE); KETONES,URINE NEGATIVE (NEGATIVE); LEUKOCYTE ESTERASE ,URINE 3+ (NEGATIVE); NITRITES,URINE NEGATIVE (NEGATIVE); PROTEIN,URINE 2+ (NEGATIVE); UROBILINOGEN,URINE NORMAL (NORMAL)
[2017-05-30 23:58] LABS: APPEARANCE,URINE SLIGHTLY HAZY (CLEAR); COLOR,URINE YELLOW (YELLOW)
[2017-05-30 23:59] LABS: BACTERIA,URINE TRACE /HPF (NEGATIVE); SQUAMOUS EPITHELIAL CELL,UR FEW /HPF (NEGATIVE)
[2017-05-31] MEDS ORDERED: NS 100 ML IV + SPIKE MINIBAG* 100 ML IV ONE ×4 (00:16→22:15)
[2017-05-31] MEDS: ZOSYN VIAL 3.375 GM IV SCH ×4 (00:46→22:04)
[2017-05-31 05:21] LABS: BASOPHILS # (AUTO) 0.1 X10^3/uL (0.0-0.1); BASOPHILS % (AUTO) 0.7 % (0.2-1.0); EOSINOPHILS # (AUTO) 0.2 x10^3/uL (0.0-0.2); EOSINOPHILS % (AUTO) 1.8 % (0.9-2.9); HEMATOCRIT 26.6 % (42.0-54.0); HEMOGLOBIN 8.9 g/dL (13.5-18.0); LYMPHOCYTES # (AUTO) 0.8 X10^3/uL (1.3-2.9); LYMPHOCYTES % (AUTO) 8.6 % (21.0-51.0); MEAN CORPUSCULAR HEMOGLOBIN 27.7 pg (27.0-34.0); MEAN CORPUSCULAR HGB CONC 33.4 g/dL (33.0-35.0); MEAN CORPUSCULAR VOLUME 82.8 fL (80.0-100.0); MEAN PLATELET VOLUME 8.9 fL (7.4-11.0); MONOCYTES # (AUTO) 0.4 x10^3/uL (0.3-0.8); MONOCYTES % (AUTO) 4.2 % (0.0-13.0); NEUTROPHILS # (AUTO) 7.6 x10^3/uL (2.2-4.8); NEUTROPHILS % (AUTO) 84.7 % (42.0-75.0); PLATELET COUNT 63 X10^3/uL (150.0-450.0); RED BLOOD COUNT 3.21 X10^6/uL (4.7-6.0); RED CELL DISTRIBUTION WIDTH 17.5 % (11.6-16.5); WHITE BLOOD COUNT 8.9 X10^3/uL (3.6-10.0)
[2017-05-31 05:30] LABS: ALANINE AMINOTRANSFERASE 7 Units/L (12-78); ALBUMIN 1.8 g/dL (3.4-5.0); ALKALINE PHOSPHATASE 102 Units/L (46-116); ASPARTATE AMINO TRANSFERASE 25 Units/L (15-37); BLOOD UREA NITROGEN 35 mg/dL (7-18); CARBON DIOXIDE 31.1 mmol/L (21-32); CHLORIDE 100 mmol/L (98-107); COR CA(FOR HYPOALB) 9.8 mg/dL (8.5-10.1); CREATININE 2.16 mg/dL (0.70-1.30); SODIUM 139 mmol/L (136-145); TOTAL PROTEIN 6.3 g/dL (6.4-8.2); eGFR BLACK RACES 41 (>60); eGFR NON BLACK RACES 34 (>60)
[2017-05-31] MEDS: NYSTATIN POWDER TOP SCH ×3 (06:22→20:16)
[2017-05-31] MEDS: NS 1000 ML 1,000 ML IV SCH ×3 (06:23→20:16)
[2017-05-31] MEDS: MORPHINE SULFATE INJ 2 MG INJ IVP PRN ×4 (06:23→23:20)
[2017-05-31 07:07] LABS: PLATELET MORPHOLOGY COMMENT NORMAL (NORMAL)
[2017-05-31] MEDS: SNACK - Diabetic Appropriate PO SCH (20:16)
[2017-05-31] MEDS: VANCOMYCIN HCL IV SCH (20:18)
[2017-05-31] MEDS: NS IV SCH (20:18)
--- NOTE | 2017-05-31 20:49 | DR.UPDATE ---
H&P Update History and Physical Update: History and Physical reviewed and patient examined. Changes noted: Yes with the following: PRESENTED TO THE OFFICE WITH COMPLAINTS OF GENERALIZED WEAKNESS , FALLS, AND REDNESS AND DRAINAGE TO THE LEFT LEG. DRAINAGE WAS NOTED WITH A FOUL ODOR. 3+ PITTING EDEMA NOTED TO EXTREMITY. RIGHT LOWER EXTREMITY ALSO NOTED WITH REDNESS AND PITTING EDEMA. PATIENT WAS ADMITTED TO THE HOSPITAL FOR FURTHER EVALUATION AND TREATMENT OF CELLULITIS. WE PLAN TO OBTAIN LABS ON ADMISSION. HE WILL BE STARTED ON ZOSYN, VANCOMYCIN, AND WOUND CARE. OTHERWISE, WE WILL FOLLOW UP WITH AM LABS AND CONTINUE TO MONITOR PATIENT.
[2017-05-31] MEDS: NORCO 5/325 MG TAB PO PRN (22:56)
[2017-06-01] MEDS ORDERED: NS 100 ML IV + SPIKE MINIBAG* 100 ML IV ONE ×2 (04:36→19:34)
[2017-06-01] MEDS: ZOSYN VIAL 3.375 GM IV SCH ×3 (05:15→21:22)
[2017-06-01 06:32] LABS: BASOPHILS # (AUTO) 0.1 X10^3/uL (0.0-0.1); BASOPHILS % (AUTO) 0.7 % (0.2-1.0); EOSINOPHILS # (AUTO) 0.2 x10^3/uL (0.0-0.2); EOSINOPHILS % (AUTO) 2.8 % (0.9-2.9); HEMOGLOBIN 8.5 g/dL (13.5-18.0); LYMPHOCYTES # (AUTO) 0.5 X10^3/uL (1.3-2.9); LYMPHOCYTES % (AUTO) 7.2 % (21.0-51.0); MEAN CORPUSCULAR HEMOGLOBIN 28.1 pg (27.0-34.0); MEAN CORPUSCULAR HGB CONC 34.1 g/dL (33.0-35.0); MEAN CORPUSCULAR VOLUME 82.6 fL (80.0-100.0); MEAN PLATELET VOLUME 8.3 fL (7.4-11.0); MONOCYTES # (AUTO) 0.4 x10^3/uL (0.3-0.8); MONOCYTES % (AUTO) 4.9 % (0.0-13.0); NEUTROPHILS # (AUTO) 6.4 x10^3/uL (2.2-4.8); NEUTROPHILS % (AUTO) 84.4 % (42.0-75.0); PLATELET COUNT 84 X10^3/uL (150.0-450.0); RED BLOOD COUNT 3.02 X10^6/uL (4.7-6.0); RED CELL DISTRIBUTION WIDTH 17.3 % (11.6-16.5); WHITE BLOOD COUNT 7.6 X10^3/uL (3.6-10.0)
[2017-06-01 06:46] LABS: ALANINE AMINOTRANSFERASE 6 Units/L (12-78); ALBUMIN 1.8 g/dL (3.4-5.0); ALKALINE PHOSPHATASE 102 Units/L (46-116); ASPARTATE AMINO TRANSFERASE 16 Units/L (15-37); BLOOD UREA NITROGEN 31 mg/dL (7-18); CALCIUM 7.7 mg/dL (8.5-10.1); CARBON DIOXIDE 32.9 mmol/L (21-32); CHLORIDE 103 mmol/L (98-107); COR CA(FOR HYPOALB) 9.5 mg/dL (8.5-10.1); CREATININE 1.95 mg/dL (0.70-1.30); SODIUM 141 mmol/L (136-145); TOTAL PROTEIN 6.5 g/dL (6.4-8.2); eGFR BLACK RACES 46 (>60); eGFR NON BLACK RACES 38 (>60)
[2017-06-01] MEDS: NYSTATIN POWDER TOP SCH ×2 (09:40→20:01)
[2017-06-01] MEDS: MORPHINE SULFATE INJ 2 MG INJ IVP PRN ×2 (12:59→22:33)
[2017-06-01] MEDS ORDERED: NS 100 ML IV 100 ML IV ONE (14:10)
[2017-06-01] MEDS: NORCO 5/325 MG TAB PO PRN (17:30)
[2017-06-01] MEDS: SNACK - Diabetic Appropriate PO SCH (20:01)
[2017-06-01] MEDS: BUTT CREAM (COMPOUND) TOP PRN (20:01)
[2017-06-01] MEDS: FLOMAX PO SCH (20:01)
[2017-06-01] MEDS: VANCOMYCIN HCL IV SCH (20:02)
[2017-06-01] MEDS: NS IV SCH (20:02)
[2017-06-01] MEDS: NS 1000 ML 1,000 ML IV SCH (23:06)
[2017-06-02] MEDS ORDERED: NS 100 ML IV + SPIKE MINIBAG* 100 ML IV ONE ×2 (04:34→14:04)
[2017-06-02] MEDS: ZOSYN VIAL 3.375 GM IV SCH ×2 (05:05→14:32)
[2017-06-02 06:30] LABS: ALANINE AMINOTRANSFERASE < 6 Units/L (12-78); ALBUMIN 1.8 g/dL (3.4-5.0); ALKALINE PHOSPHATASE 92 Units/L (46-116); ASPARTATE AMINO TRANSFERASE 13 Units/L (15-37); BASOPHILS # (AUTO) 0.1 X10^3/uL (0.0-0.1); BASOPHILS % (AUTO) 1.1 % (0.2-1.0); BLOOD UREA NITROGEN 30 mg/dL (7-18); CALCIUM 7.9 mg/dL (8.5-10.1); CARBON DIOXIDE 32.8 mmol/L (21-32); CHLORIDE 103 mmol/L (98-107); COR CA(FOR HYPOALB) 9.7 mg/dL (8.5-10.1); COR NA(FOR HYPERGLY) 142 mmol/L (136-145); EOSINOPHILS # (AUTO) 0.2 x10^3/uL (0.0-0.2); EOSINOPHILS % (AUTO) 2.7 % (0.9-2.9); HEMATOCRIT 24.8 % (42.0-54.0); HEMOGLOBIN 8.4 g/dL (13.5-18.0); LYMPHOCYTES # (AUTO) 0.4 X10^3/uL (1.3-2.9); LYMPHOCYTES % (AUTO) 6.1 % (21.0-51.0); MEAN CORPUSCULAR HEMOGLOBIN 28.2 pg (27.0-34.0); MEAN CORPUSCULAR HGB CONC 33.9 g/dL (33.0-35.0); MEAN CORPUSCULAR VOLUME 83.2 fL (80.0-100.0); MEAN PLATELET VOLUME 8.2 fL (7.4-11.0); MONOCYTES # (AUTO) 0.3 x10^3/uL (0.3-0.8); MONOCYTES % (AUTO) 3.9 % (0.0-13.0); NEUTROPHILS # (AUTO) 5.9 x10^3/uL (2.2-4.8); NEUTROPHILS % (AUTO) 86.2 % (42.0-75.0); PLATELET COUNT 96 X10^3/uL (150.0-450.0); RED BLOOD COUNT 2.99 X10^6/uL (4.7-6.0); RED CELL DISTRIBUTION WIDTH 17.4 % (11.6-16.5); SODIUM 141 mmol/L (136-145); TOTAL PROTEIN 7.2 g/dL (6.4-8.2); WHITE BLOOD COUNT 6.8 X10^3/uL (3.6-10.0); eGFR BLACK RACES 47 (>60); eGFR NON BLACK RACES 39 (>60)
--- NOTE | 2017-06-02 07:58 | RAD ---
Examination: Portable AP chest History: Anemia Comparison 03/24/2017 Findings: Moderately severe cardiomegaly with sternal wires. Diffuse hazy density over both lungs con sistent with perivascular edema. No consolidation or pneumothorax noted although the retrocardiac are a is partly obscured. Extrapulmonary air is not identified. Suggestion of left rib fracture deformiti es. Impression: 1. Significant cardiomegaly, post sternotomy, suspect pulmonary vascular congestion and probable paul a. 2. Probable left rib fractures, not definitely seen on prior study. Correlate clinically. Reported By:
[2017-06-02] MEDS: NYSTATIN POWDER TOP SCH ×2 (09:02→21:37)
[2017-06-02] MEDS: FLOMAX PO SCH (09:02)
[2017-06-02] MEDS ORDERED: NORCO 10/325 TAB PO PRN (11:17)
[2017-06-02] MEDS: MORPHINE SULFATE INJ 2 MG INJ IVP PRN ×2 (14:32→21:31)
[2017-06-02] MEDS: LOVENOX INJ 40 MG SYR SC SCH (14:34)
[2017-06-02] MEDS: NS 1000 ML 1,000 ML IV SCH (14:35)
[2017-06-02] MEDS: HumuLIN R SC SCH ×2 (18:04→21:43)
[2017-06-02] MEDS: SNACK - Diabetic Appropriate PO SCH (20:00)
[2017-06-02] MEDS ORDERED: ZOCOR TAB 40 MG PO SCH (21:00)
[2017-06-02] MEDS ORDERED: PATIENT'S HOME MEDICATION (Famotidine [Pepcid] 40 MG) PO SCH (21:00)
[2017-06-02] MEDS ORDERED: NEURONTIN CAP 400 MG PO SCH (21:00)
[2017-06-02 21:05] LABS: CREATININE 1.88 mg/dL (0.70-1.30)
[2017-06-02 21:12] LABS: VANCOMYCIN,TROUGH 20.1 ug/mL (15-20)
[2017-06-02] MEDS: PEPCID TAB 20 MG PO SCH (21:23)
[2017-06-02] MEDS: LASIX PO SCH (21:24)
[2017-06-02] MEDS: COREG TAB 6.25 MG PO SCH (21:24)
[2017-06-02] MEDS: FOLIC ACID TAB 1 MG PO SCH (21:36)
[2017-06-02] MEDS: NS IV SCH (21:38)
[2017-06-02] MEDS: VANCOMYCIN HCL IV SCH (21:38)
[2017-06-02] MEDS: BUTT CREAM (COMPOUND) TOP PRN (22:11)
[2017-06-02] MEDS: CIPRO IV 400 MG PREMIX* 400 MG/200 ML IV.SOLN. IV SCH (23:48)
[2017-06-03 06:12] LABS: BASOPHILS % (AUTO) 0.7 % (0.2-1.0); EOSINOPHILS # (AUTO) 0.3 x10^3/uL (0.0-0.2); EOSINOPHILS % (AUTO) 4.6 % (0.9-2.9); HEMATOCRIT 25.1 % (42.0-54.0); HEMOGLOBIN 8.4 g/dL (13.5-18.0); LYMPHOCYTES # (AUTO) 0.5 X10^3/uL (1.3-2.9); LYMPHOCYTES % (AUTO) 8.3 % (21.0-51.0); MEAN CORPUSCULAR HEMOGLOBIN 27.9 pg (27.0-34.0); MEAN CORPUSCULAR HGB CONC 33.5 g/dL (33.0-35.0); MEAN CORPUSCULAR VOLUME 83.3 fL (80.0-100.0); MEAN PLATELET VOLUME 8.4 fL (7.4-11.0); MONOCYTES # (AUTO) 0.2 x10^3/uL (0.3-0.8); MONOCYTES % (AUTO) 4.1 % (0.0-13.0); NEUTROPHILS % (AUTO) 82.3 % (42.0-75.0); PLATELET COUNT 77 X10^3/uL (150.0-450.0); RED BLOOD COUNT 3.01 X10^6/uL (4.7-6.0); RED CELL DISTRIBUTION WIDTH 18.1 % (11.6-16.5); WHITE BLOOD COUNT 6.1 X10^3/uL (3.6-10.0)
[2017-06-03] MEDS: NS 1000 ML 1,000 ML IV SCH ×2 (06:14→06:27)
[2017-06-03 06:27] LABS: ALBUMIN 1.6 g/dL (3.4-5.0); ALKALINE PHOSPHATASE 89 Units/L (46-116); ASPARTATE AMINO TRANSFERASE 15 Units/L (15-37); BLOOD UREA NITROGEN 31 mg/dL (7-18); CALCIUM 7.9 mg/dL (8.5-10.1); CARBON DIOXIDE 31.8 mmol/L (21-32); CHLORIDE 103 mmol/L (98-107); COR CA(FOR HYPOALB) 9.8 mg/dL (8.5-10.1); CREATININE 1.86 mg/dL (0.70-1.30); MAGNESIUM 1.6 mg/dL (1.7-2.9); SODIUM 138 mmol/L (136-145); TOTAL PROTEIN 6.4 g/dL (6.4-8.2); eGFR BLACK RACES 49 (>60); eGFR NON BLACK RACES 40 (>60)
[2017-06-03] MEDS: MORPHINE SULFATE INJ 2 MG INJ IVP PRN (06:28)
[2017-06-03 06:30] LABS: PLATELET MORPHOLOGY COMMENT NORMAL (NORMAL)
--- NOTE | 2017-06-03 06:30 | RAD ---
HISTORY: Anemia Study: Chest AP portable Comparison: 06/02/2017, 03/24/2017 Findings: The patient is rotated to the left. The patient is status post median sternotomy and CABG. The heart remains enlarged. Mild pulmonary venous congestion is present. No interstitial or alveolar pulmonary edema appears to be present. The retrocardiac area is partially obscured likely due to rotation, porter nandini, left lower lobe infiltrate, volume loss or effusion could not be entirely excluded. IMPRESSION: Moderate cardiomegaly with pulmonary venous congestion Increased density retrocardiac area the left lower lobe which could be due to rotation, atelectasis, infiltrate, effusion or combination. This finding is unchanged from the prior examination Reported By:
[2017-06-03 06:50] LABS: ALANINE AMINOTRANSFERASE 9 Units/L (12-78)
[2017-06-03] MEDS: LOVENOX INJ 40 MG SYR SC SCH (08:32)
[2017-06-03] MEDS: CIPRO IV 400 MG PREMIX* 400 MG/200 ML IV.SOLN. IV SCH (08:32)
[2017-06-03] MEDS: COREG TAB 6.25 MG PO SCH (08:33)
[2017-06-03] MEDS: PEPCID TAB 20 MG PO SCH (08:33)
[2017-06-03] MEDS: FOLIC ACID TAB 1 MG PO SCH (08:34)
[2017-06-03] MEDS: LASIX PO SCH (08:34)
[2017-06-03] MEDS: HumuLIN R SC SCH (08:35)
[2017-06-03] MEDS: NYSTATIN POWDER TOP SCH (08:36)
[2017-06-03] MEDS ORDERED: MAG-OX TAB PO SCH (09:00)
[2017-06-03] MEDS ORDERED: APRESOLINE TAB 25 MG PO SCH (09:00)
[2017-06-03] MEDS ORDERED: CYMBALTA PO SCH (09:00)
[2017-06-03] MEDS ORDERED: FLOMAX PO SCH (09:00)
[2017-06-03] MEDS ORDERED: ISOSORBIDE MONONITRATE ER PO SCH (09:00)
[2017-06-03] MEDS ORDERED: ALBUMIN HUMAN 25%- 100ML 100 ML IV SCH (09:00)
[2017-06-03] MEDS ORDERED: HumuLIN R SUBCUT PRN (09:25)
[2017-06-03] MEDS ORDERED: SNACK - Diabetic Appropriate PO SCH ×2 (09:25→20:00)
--- NOTE | 2017-06-03 10:06 | PCM.PROG ---
Progress Note - Progress Note for Day of Date: 05/31/17 - Subjective Subjective: WAS ADMITTED FOR LEFT LOWER EXTREMITY CELLULITIS, GENERALIZED WEAKNESS, AND ANEMIA. TODAY, HE IS ALERT AND ORIENTED, LYING IN BED ON MORNING ROUNDS. HE IS NOTED WITH COMPLAINTS OF PAIN TO THE LEFT LOWER EXTREMITY AND GENERALIZED WEAKNESS. ON EXAMINATION, HEART IS REGULAR IN RATE AND RHYTHM. BILATERAL LUNGS ARE NOTED WITH DIMINISHED LUNG SOUNDS THROUGHOUT. ABDOMEN IS ROUND, SOFT, AND NON-TENDER WITH NORMAL BOWEL SOUNDS NOTED IN ALL QUADRANTS. PATIENT IS NOTED WITH A LEFT BELOW THE KNEE AMPUTATION. STUMP IS NOTED WITH REDNESS, SWELLIN, WARMTH, AND BLOODY DRAINAGE. LOU ARE INTACT. RIGHT LOWER EXTREMITY IS NOTED WITH ERYTHEMA. HIS VITALS THIS MORNING ARE 97.3- 95-20-100%-137/91. LABS WERE OBTAINED. ABNORMAL LAB VALUES INCLUDE THE FOLLOWING : RBC 3.21, HGB 8.9, HCT 26.6, BUN 35, CREATININE 2.16, CALCIUM 8.0, ALT 7, TOTAL PROTEIN 6.3, ALBUMIN 1.8. WOUND CULTURES AND BLOOD CULTURES ARE PENDING. ON ADMISSION, A URINALYSIS REVEALED A WBC 30-50, RBC 3-5, LEUKOCYTES 3+, BACTERIA TRACE. HE IS CURRENTLY RECEIVING VANCOMYCIN AND ZOSYN IV WELL WOUND CARE. WE WILL CONTINUE WITH CURRENT PLAN OF CARE TODAY. OTHERWISE, WE WILL FOLLOW UP WITH AM LABS AND CONTINUE TO MONITOR PATIENT. - Past Medical Family Social History Past Med/Fam/Surg Hx: No changes since H&P Allergies: Allergies No Known Drug Allergies Allergy (Verified 05/30/17 18:15) - Review of Systems ROS: No change since H&P - Vital Signs and I&O's Vital Signs: Temperature 98.8 F Pulse Rate [Right Brachial] 87 Respiratory Rate 20 Blood Pressure [Right Arm] 146/63 Blood Pressure [Left Arm] 124/66 Blood Pressure 156/72 O2 Sat by Pulse Oximetry 100 Intake and Output: Intake & Output 05/31/17 06/01/17 06/02/17 06/03/17 11:59 11:59 11:59 11:59 Intake Total 1374 2752 2310 2855 Output Total 500 375 250 150 Balance 874 2377 2060 2705 - Physical Exam Oriented: Normal Eyes: Normal Ear: Normal Nose: Normal Throat: Normal Respiratory: Diminished Cardiovascular: Edema (BILATERAL LOWER EXTREMITIES. ) : Normal Auscultation: Bowel Sounds: Normal Palpation: Normal Tenderness: Normal Skin: Red, Tender, Hot (LEFT LOWER EXTREMITY ), Wound Musculoskeletal: Left, Leg, Swelling, Tender, Instability Psychiatric: Normal Mood Description: Calm Affect: Normal Speech Pattern: Clear, Appropriate - Laboratory and Diagnostics Result Diagrams: 06/03/17 04:03 06/03/17 04:03 Labs: 05/30/17 17:53 Blood Blood Culture - Preliminary 05/30/17 18:07 Blood Blood Culture - Preliminary 05/30/17 18:41 Leg - Left Gram Stain - Final 05/30/17 18:41 Leg - Left Wound Culture - Final Acinetobacter Baumanii/Haemoly Laboratory WBC 6.1 X10^3/uL (3.6-10.0) 06/03/17 04:03 RBC 3.01 X10^6/uL (4.7-6.0) L 06/03/17 04:03 Hgb 8.4 g/dL (13.5-18.0) L 06/03/17 04:03 Hct 25.1 % (42.0-54.0) L 06/03/17 04:03 MCV 83.3 fL (80.0-100.0) 06/03/17 04:03 MCH 27.9 pg (27.0-34.0) 06/03/17 04:03 MCHC 33.5 g/dL (33.0-35.0) 06/03/17 04:03 RDW 18.1 % (11.6-16.5) H 06/03/17 04:03 Plt Count 77 X10^3/uL (150.0-450.0) L 06/03/17 04:03 Plt Count Comment Decreased (ADEQUATE) 06/03/17 04:03 MPV 8.4 fL (7.4-11.0) 06/03/17 04:03 Neut % (Auto) 82.3 % (42.0-75.0) H 06/03/17 04:03 Lymph % (Auto) 8.3 % (21.0-51.0) L 06/03/17 04:03 [place] % (Auto) 4.1 % (0.0-13.0) 06/03/17 04:03 Eos % (Auto) 4.6 % (0.9-2.9) H 06/03/17 04:03 Baso % (Auto) 0.7 % (0.2-1.0) 06/03/17 04:03 Neut # (Auto) 5.0 x10^3/uL (2.2-4.8) H 06/03/17 04:03 Lymph # (Auto) 0.5 X10^3/uL (1.3-2.9) L 06/03/17 04:03 [place] # (Auto) 0.2 x10^3/uL (0.3-0.8) L 06/03/17 04:03 Eos # (Auto) 0.3 x10^3/uL (0.0-0.2) H 06/03/17 04:03 Baso # (Auto) 0.0 X10^3/uL (0.0-0.1) 06/03/17 04:03 Absolute Nucleated RBC 0.0 /100WBC 06/03/17 04:03 Plt Clumps, EDTA Rare 06/03/17 04:03 Plt Morphology Comment Normal (NORMAL) 06/03/17 04:03 RBC Morphology Normal (NORMAL) 06/03/17 04:03 Sodium 138 mmol/L (136-145) 06/03/17 04:03 Corrected Sodium TNP 06/03/17 04:03 Potassium 3.9 mmol/L (3.5-5.1) 06/03/17 04:03 Chloride 103 mmol/L (98-107) 06/03/17 04:03 Carbon Dioxide 31.8 mmol/L (21-32) 06/03/17 04:03 BUN 31 mg/dL (7-18) H 06/03/17 04:03 Creatinine 1.86 mg/dL (0.70-1.30) H 06/03/17 04:03 Est GFR (MDRD) Af Amer 49 (>60) L 06/03/17 04:03 Est GFR (MDRD) Non-Af 40 (>60) L 06/03/17 04:03 Glucose 103 mg/dL (65-99) H 06/03/17 04:03 POC Glucose (mg/dL) 84 mg/dL (65-99) 06/03/17 05:57 Lactic Acid 3.7 mmol/L (0.4-2.0) H 05/30/17 18:13 Calcium 7.9 mg/dL (8.5-10.1) L 06/03/17 04:03 Corrected Calcium 9.8 mg/dL (8.5-10.1) 06/03/17 04:03 Magnesium 1.6 mg/dL (1.7-2.9) L 06/03/17 04:03 Total Bilirubin 0.80 mg/dL (0.2-1.0) 06/03/17 04:03 AST 15 Units/L (15-37) 06/03/17 04:03 ALT 9 Units/L (12-78) L 06/03/17 04:03 Alkaline Phosphatase 89 Units/L (46-116) 06/03/17 04:03 Total Protein 6.4 g/dL (6.4-8.2) 06/03/17 04:03 Albumin 1.6 g/dL (3.4-5.0) L 06/03/17 04:03 Globulin 4.8 g/dL (2.5-4.5) H 06/03/17 04:03 Albumin/Globulin Ratio 0.3 Ratio (1.1-2.1) L 06/03/17 04:03 Specimen Type Random urine 05/30/17 23:08 Urine Color Yellow (YELLOW) 05/30/17 23:08 Urine Appearance Slightly hazy (CLEAR) 05/30/17 23:08 Urine pH 5.0 (5.0 - 8.0) 05/30/17 23:08 Ur Specific [place] 1.010 (1.000-1.030) 05/30/17 23:08 Urine Protein 2+ (NEGATIVE) 05/30/17 23:08 Urine Glucose (UA) Negative (NEGATIVE) 05/30/17 23:08 Urine Ketones Negative (NEGATIVE) 05/30/17 23:08 Urine Occult Blood 3+ (NEGATIVE) 05/30/17 23:08 Urine Nitrite Negative (NEGATIVE) 05/30/17 23:08 Urine Bilirubin Negative (NEGATIVE) 05/30/17 23:08 Urine Urobilinogen Normal (NORMAL) 05/30/17 23:08 Ur Leukocyte Esterase 3+ (NEGATIVE) 05/30/17 23:08 Urine RBC 3-5 /HPF (NONE SEEN) 05/30/17 23:08 Urine WBC 30-50 /HPF (NONE SEEN) 05/30/17 23:08 Ur Squamous Epith Cells Few /HPF (NEGATIVE) 05/30/17 23:08 Urine Bacteria Trace /HPF (NEGATIVE) 05/30/17 23:08 Ur Culture Indicated? No/not indicated 05/30/17 23:08 Vancomycin Trough 20.1 ug/mL (15-20) H 06/02/17 20:24 - Plan (1) Cellulitis of left lower extremity Status: Acute Plan: ZOSYN IV, VANCOMYCIN IV, WOUND CARE[facility]
[2017-06-03] MEDS ORDERED: NS 1000 ML 1,000 ML IV SCH (13:00)
[2017-06-03 16:40] VITALS: BP 144/72
[2017-06-03] MEDS ORDERED: TRICOR TAB 160 MG PO SCH (21:00)
== END 2017-06-03 17:55 | disposition home or self-care (01) | DRG 603 ==
LOC: ICU 17:15
PROVIDERS: ADMIT Internal Medicine; ATTEND Internal Medicine
DX: L03.116 Cellulitis of left lower limb (principal); D64.89 Other specified anemias; R53.1 Weakness; I50.9 Heart failure, unspecified; E11.65 Type 2 diabetes mellitus with hyperglycemia; N18.9 Chronic kidney disease, unspecified; I12.9 Hypertensive chronic kidney disease with stage 1 through stage 4 chronic kidney disease, or unspecified chronic kidney disease; N50.89 Other specified disorders of the male genital organs; R26.89 Other abnormalities of gait and mobility; R06.02 Shortness of breath; Z89.512 Acquired absence of left leg below knee
CPT/HCPCS: 36415; 71045; 80053; 80202; 81001; 82565; 83605; 83735; 85025; 87040; 87070; 87075; 87077; 87186; 87205; 93005; A4216; A4222; P9047; J0744; J1650; J1815; J2270; J2543; J3370

== ENCOUNTER 2017-06-05 18:38 | Emergency (ER) | payer MEDICAID ==
[2017-06-05 19:04] VITALS: BMI 34.4
--- NOTE | 2017-06-05 19:23 | DR.SOBA ---
HPI - Time Seen Time seen: 19:00 - Primary Care Physician Primary Care Physician: TERRY - HPI Comment HPI Comment: Patient was discharged from hospital four days ago s/p treatment of CHF, COPD. He is on home oxygen at 2L/min. He reports that he has shortness of breath. - Complaints Chief Complaint Doctors Comments: Patient reports that he has COPD, on oxygen of 2L and uses duonebs daily. 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 - Source History Provided: Patient, EMS - Mode of Arrival Mode of Arrival: Stretcher - Timing Onset of Chief Complaint: 06/05/17 PMH - PMH Past Medical History: Yes Past Medical History: Anemia, CHF, Diabetes, GERD, Hypertension Past Surgical History: Yes Surgical History: Angioplasty/Stents, CABG/Valve Surgery - Family History History of Family Medical Conditions: Yes Family Medical History: Diabetes Mellitus, Cancer, [place], Coronary Artery Disease, Hypertension - Social History Type of Tobacco Use: Cigarettes Alcohol Use: None Do you use any recreational Drugs:: No Lives With: Family Lives Where: Home - infectious screening In the last 2 months have you had wt loss of >10#?: NO Have you had fever, night sweats or hemotysis?: No Have you traveled outside the country in the last 6 months?: No Isolation: Standard ROS - Review of Systems Eyes: No Symptoms Reported ENTM: No Symptoms Reported Respiratoy: No Symptoms Reported Cardiovascular: No Symptoms Reported Gastrointestinal/Abdominal: No Symptoms Reported Genitourinary: No Symptoms Reported Neurological: No Symptoms Reported Musculoskeletal: No Symptoms Reported Integumentary: No Symptoms Reported Hematologic/Lymphatic: No Symptoms Reported Endocrine: No Symptoms Reported Psychiatric: No Symptoms Reported All Other Systems: Reviewed and Negative PE - Vital Signs Vitals: Temperature 96.9 F Pulse Rate [Left Brachial] 83 Pulse Rate 80 Respiratory Rate 16 Blood Pressure [Right Arm] 146/63 Blood Pressure [Left Arm] 123/63 Blood Pressure 116/56 O2 Sat by Pulse Oximetry 100 - General General Appearance: Alert, In No Apparent Distress - Head Head Exam: Normal Inspection, Atraumatic - Eyes Eye exam: Normal Appearance, PERRL, EOMI - ENT ENT Exam: Normal Exam - Neck Neck Exam: Normal Inspection, Full ROM - Chest Chest Inspection: Normal Inspection - Respiratory Respiratory Exam: Normal Lung Sounds Bilat Respiratory Exam: Bilateral Clear to Auscultation - Cardiovascular Cardiovascular Exam: Regular Rate, Normal Rhythm - Abdominal Exam Abdominal Exam: Normal Inspection, Normal Bowel Sounds Abdominal Tenderness: negative: RUQ, RLQ, LUQ, LLQ, Epigastrium, Suprapubic, Diffuse, Mild, Moderate, Severe, Other - Extremities Extremities Exam: Normal Inspection - Back Back Exam: Normal Inspection, Full ROM - Neurologic Neurological Exam: Alert, Oriented X3, CN II-XII Intact - Psychiatric Psychiatric Exam: Normal Affect - Skin Skin Exam: Warm, Dry, Intact Course - Treatment Treatment: Oxygen, at 1.5L/m maintained 100% saturation. He is in no distress. He was told to continue all medications given at discharge. Keep appoint on next in [place] for follow up on BKA of left lower extremity - Reevaluation 1st: Improved ROR - Labs Reviewed Laboratory Results Reviewed?: Yes (glucose 41mg/dl) Result Diagrams: 06/05/17 19:30 06/05/17 19:30 Laboratory: WBC 5.9 X10^3/uL (3.6-10.0) 06/05/17 19: RBC 3.32 X10^6/uL (4.7-6.0) L 06/05/17 19:30 Hgb 9.2 g/dL (13.5-18.0) L 06/05/17 19:30 Hct 27.4 % (42.0-54.0) L 06/05/17 19:30 MCV 82.8 fL (80.0-100.0) 06/05/17 19: MCH 27.7 pg (27.0-34.0) 06/05/17 19:30 MCHC 33.4 g/dL (33.0-35.0) 06/05/17 19:30 RDW 17.9 % (11.6-16.5) H 06/05/17 19:30 Plt Count 138 X10^3/uL (150.0-450.0) L 06/05/17 19:30 MPV 7.9 fL (7.4-11.0) 06/05/17 19:30 Neut % (Auto) 77.4 % (42.0-75.0) H 06/05/17 19:30 Lymph % (Auto) 9.2 % (21.0-51.0) L 06/05/17 19:30 [place] % (Auto) 4.0 % (0.0-13.0) 06/05/17 19:30 Eos % (Auto) 8.2 % (0.9-2.9) H 06/05/17 19:30 Baso % (Auto) 1.2 % (0.2-1.0) H 06/05/17 19:30 Neut # (Auto) 4.5 x10^3/uL (2.2-4.8) 06/05/17 19: Lymph # (Auto) 0.5 X10^3/uL (1.3-2.9) L 06/05/17 19:30 [place] # (Auto) 0.2 x10^3/uL (0.3-0.8) L 06/05/17 19:30 Eos # (Auto) 0.5 x10^3/uL (0.0-0.2) H 06/05/17 19: Baso # (Auto) 0.1 X10^3/uL (0.0-0.1) 06/05/17 19:30 Absolute Nucleated RBC 0.2 /100WBC 06/05/17 19:30 Sodium 139 mmol/L (136-145) 06/05/17 19:30 Corrected Sodium TNP 06/05/17 19:30 Potassium 4.0 mmol/L (3.5-5.1) 06/05/17 19:30 Chloride 102 mmol/L (98-107) 06/05/17 19: Carbon Dioxide 32.8 mmol/L (21-32) H 06/05/17 19:30 BUN 28 mg/dL (7-18) H 06/05/17 19:30 Creatinine 1.87 mg/dL (0.70-1.30) H 06/05/17 19:30 Est GFR (MDRD) Af Amer 48 (>60) L 06/05/17 19:30 Est GFR (MDRD) Non-Af 40 (>60) L 06/05/17 19:30 Glucose 41 mg/dL (65-99) L* 06/05/17 19:30 POC Glucose (mg/dL) 130 mg/dL (65-99) H 06/05/17 20:53 Calcium 8.4 mg/dL (8.5-10.1) L 06/05/17 19:30 Corrected Calcium 10.0 mg/dL (8.5-10.1) 06/05/17 19:30 Total Bilirubin 1.20 mg/dL (0.2-1.0) H 06/05/17 19:30 AST 26 Units/L (15-37) 06/05/17 19:30 ALT 12 Units/L (12-78) 06/05/17 19:30 Alkaline Phosphatase 116 Units/L (46-116) 06/05/17 19:30 Total Protein 6.6 g/dL (6.4-8.2) 06/05/17 19:30 Albumin 2.0 g/dL (3.4-5.0) L 06/05/17 19:30 Globulin 4.6 g/dL (2.5-4.5) H 06/05/17 19:30 Albumin/Globulin Ratio 0.4 Ratio (1.1-2.1) L 06/05/17 19:30 - XRAY XRAY Interpreted by: Radiologist (Chest: Cardiomegaly is unchanged. There is pulmonary vascular congestion with mild diffuse interstitial edema and small right sided pleural effusion as well.) - Diagnosis Discharge Problem: Hypoglycemia COPD (chronic obstructive pulmonary disease) Qualifiers: COPD type: unspecified COPD Qualified Code(s): J44.9 - Chronic obstructive pulmonary disease, unspecified CHF (congestive heart failure) Qualifiers: Heart failure type: unspecified Heart failure chronicity: chronic Qualified Code(s): I50.9 - Heart failure, unspecified Hx of BKA Qualifiers: Laterality: left Qualified Code(s): Z89.512 - Acquired absence of left leg below knee - Discharge Plan Condition: Stable - Follow ups/Referrals Follow ups/Referrals: Joshua Velázquez [Primary Care Provider] - 3 days - Instructions
[2017-06-05 19:51] LABS: BASOPHILS # (AUTO) 0.1 X10^3/uL (0.0-0.1); BASOPHILS % (AUTO) 1.2 % (0.2-1.0); EOSINOPHILS # (AUTO) 0.5 x10^3/uL (0.0-0.2); EOSINOPHILS % (AUTO) 8.2 % (0.9-2.9); HEMATOCRIT 27.4 % (42.0-54.0); HEMOGLOBIN 9.2 g/dL (13.5-18.0); LYMPHOCYTES # (AUTO) 0.5 X10^3/uL (1.3-2.9); LYMPHOCYTES % (AUTO) 9.2 % (21.0-51.0); MEAN CORPUSCULAR HEMOGLOBIN 27.7 pg (27.0-34.0); MEAN CORPUSCULAR HGB CONC 33.4 g/dL (33.0-35.0); MEAN CORPUSCULAR VOLUME 82.8 fL (80.0-100.0); MEAN PLATELET VOLUME 7.9 fL (7.4-11.0); MONOCYTES # (AUTO) 0.2 x10^3/uL (0.3-0.8); NEUTROPHILS # (AUTO) 4.5 x10^3/uL (2.2-4.8); NEUTROPHILS % (AUTO) 77.4 % (42.0-75.0); PLATELET COUNT 138 X10^3/uL (150.0-450.0); RED BLOOD COUNT 3.32 X10^6/uL (4.7-6.0); RED CELL DISTRIBUTION WIDTH 17.9 % (11.6-16.5); WHITE BLOOD COUNT 5.9 X10^3/uL (3.6-10.0)
[2017-06-05 19:58] LABS: BLOOD UREA NITROGEN 28 mg/dL (7-18); CALCIUM 8.4 mg/dL (8.5-10.1); CARBON DIOXIDE 32.8 mmol/L (21-32); CHLORIDE 102 mmol/L (98-107); CREATININE 1.87 mg/dL (0.70-1.30); SODIUM 139 mmol/L (136-145); eGFR BLACK RACES 48 (>60); eGFR NON BLACK RACES 40 (>60)
[2017-06-05 19:59] LABS: ALANINE AMINOTRANSFERASE 12 Units/L (12-78); ALKALINE PHOSPHATASE 116 Units/L (46-116); ASPARTATE AMINO TRANSFERASE 26 Units/L (15-37); TOTAL PROTEIN 6.6 g/dL (6.4-8.2)
[2017-06-05] MEDS ORDERED: DEXTROSE 10% 1,000 ML IV ONE (20:01)
[2017-06-05] MEDS ORDERED: D5W 1000 ML IV 1,000 ML IV ONE ×2 (20:04→20:05)
--- NOTE | 2017-06-05 22:03 | RAD ---
Chest, AP portable Indication: Difficulty breathing Comparison: 06/03/2017 Findings: Cardiomegaly is unchanged. There is pulmonary vascular congestion with mild diffuse interst itial edema and small right-sided pleural effusion. Suspect left-sided pleural effusion as well. Impression: Cardiomegaly with findings of CHF, including interstitial edema and pleural effusions. Reported By:
[2017-06-05 22:24] VITALS: BP 123/63
== END 2017-06-05 23:15 | disposition home or self-care (01) ==
LOC: ER 18:39
DX: J44.9 Chronic obstructive pulmonary disease, unspecified (principal); I50.9 Heart failure, unspecified; E16.2 Hypoglycemia, unspecified; Z89.512 Acquired absence of left leg below knee; I51.7 Cardiomegaly; J90 Pleural effusion, not elsewhere classified
CPT/HCPCS: 36415; 71045; 80053; 85025; 96365; 99283; A4222